=== PATIENT | male | born 1950 | race Caucasian/White ===

== ENCOUNTER 2017-08-06 15:38 | Inpatient (IN) | payer OTHER, MEDICARE ==
[~2017-08-06] VITALS: Ht 180.3 cm; Wt 98.0 kg
[2017-08-06] VITALS (9 sets, daily range): BP systolic 95–112; BP diastolic 52–64; PULSE 56–72; RESP 16–18; TEMP 98–100.2; O2SAT 95–98
[~2017-08-06 15:38] MED LIST: ASPI-183 PO; BACT2OIN TOPICAL; CARV6.252 PO; HYDR-3533 PO; LISI10TA3 PO; NITR1SUB2 SL; PRED-503 PO; SIMV20TA PO; VENTAER INH; Z.0.OXYGEN INH; ZOLO100T PO; [UNRECOGNIZED DRUG - CODE] TOPICAL
[2017-08-06] MEDS ORDERED: SODIUM CHLORIDE 0.9% FLUSH 10 ML FLUSH IVF PRN (16:00)
[2017-08-06] MEDS ORDERED: SODIUM CHLOR 0.9% 1000 ML INJ 1,000 ML IV ONE (16:00)
[2017-08-06] MEDS ORDERED: KETOROLAC TROMETHAMINE 30 MG/ML (IVP) VIAL IV PUSH ONE (16:00)
[2017-08-06] MEDS ORDERED: TAMS0.4C4 (16:03)
[2017-08-06] MEDS ORDERED: LISI-519 PO (16:03)
[2017-08-06] MEDS ORDERED: ASPI-516 CHEW (16:03)
--- NOTE | 2017-08-06 16:04 | PD ---
HPI Chief Complaint: Cold / Flu Symptoms Time Seen by Provider: 15:59 Travel History International Travel<30 days: No Contact w/Intl Traveler<30days: No Traveled to known affect area: No History of Present Illness HPI 66y male presents to the ED via [facility] complaining of cough, congestion, fevers, chills, body aches, and weakness for 2-3 days. 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 Says he "has lung pain". Denies nausea, vomiting, abdominal pain. Has a significant cardiac history which includes multiple stents and CABG. PFSH Past Medical History Asthma: Yes Blood Disorders: No Anxiety: No Depression: No Heart Rhythm Problems: No Cancer: No Cardiovascular Problems: Yes High Cholesterol: No Chemotherapy: No Chest Pain: Yes Congestive Heart Failure: No COPD: No Cerebrovascular Accident: Yes (2) Coronary Artery Disease: Yes Diminished Hearing: No Endocrine: No Glaucoma: No Genitourinary: No Hypertension: Yes Immune Disorder: No Musculoskeletal: No Neurologic: Yes Psychiatric: No Reproductive: No Respiratory: Yes Myocardial Infarction: Yes Radiation Therapy: No Sleep Apnea: No Past Surgical History Abdominal Surgery: No AICD: No Arteriovenous Shunt: No Cardiac Surgery: Yes (7 STENTS, CABG 2008, ) Coronary Artery Bypass Graft: Yes Coronary Stent: Yes Ear Surgery: No Endocrine Surgery: No Eye Surgery: No Genitourinary Surgery: No Gynecologic Surgery: No Insulin Pump: No Joint Replacement: No Oral Surgery: Yes (T/A A CHILD) Pacemaker: No Thoracic Surgery: No Tonsillectomy: Yes Other Surgery: Yes (STENTS 7 YRS AGO) Social History Alcohol Use: No Tobacco Use: No Substance Use: No Allergies-Medications (Allergen,Severity, Reaction): Coded Allergies: enoxaparin (Unverified Allergy, Severe, 08/06/17) heparin (porcine) (Unverified Allergy, Severe, 08/06/17) Reported Meds & Prescriptions Reported Meds & Active Scripts Active Reported Sertraline (Sertraline HCl) 100 Mg Tab 100 Mg PO DAILY Carvedilol 12.5 Mg Tab 12.5 Mg PO DAILY Tamsulosin (Tamsulosin HCl) 0.4 Mg Cap 0.4 Mg BID Lisinopril 5 Mg Tab 5 Mg PO DAILY Aspirin 81 Mg Chew 81 Mg CHEW DAILY Simvastatin 20 Mg Tab 20 Mg PO DAILY Nitroglycerin SL (Nitroglycerin) 0.3 Mg Subl 0.3 Mg SL DIRECTED PRN ONE TABLET UNDER THE TONGUE NEEDED FOR CHEST PAIN, MAY REPEAT EVERY FIVE MINUTES FOR A TOTAL OF 3 DOSES OR CALL 911 IF NO RELIEF Review of Systems Except as stated in HPI: all other systems reviewed are Neg Physical Exam Narrative GENERAL: Well-developed, well-nourished in no apparent distress SKIN: Focused skin assessment warm/dry. HEAD: Atraumatic. Normocephalic. EYES: Pupils equal and round. No scleral icterus. No injection or drainage. ENT: No nasal bleeding or discharge. Mucous membranes pink and moist. NECK: Trachea midline. No JVD. CARDIOVASCULAR: Regular rate and rhythm. No murmur appreciated. RESPIRATORY: No accessory muscle use. Clear to auscultation. Breath sounds equal bilaterally. GASTROINTESTINAL: Abdomen soft, non-tender, nondistended. MUSCULOSKELETAL: No obvious deformities. No clubbing. No cyanosis. No edema. NEUROLOGICAL: Awake and alert. No obvious cranial nerve deficits. Motor grossly within normal limits. Normal speech. PSYCHIATRIC: Appropriate mood and affect; insight and judgment normal. Data Data Last Documented VS Vital Signs Date Time Temp Pulse Resp B/P (MAP) Pulse Ox O2 Delivery O2 Flow Rate FiO2 08/06/17 20:00 58 16 100/53 (69) 96 Room Air 08/06/17 18:18 98.3 08/06/17 18:00 2.00 Orders Orders Electrocardiogram (08/06/17 15:56) Complete Blood Count With Diff (08/06/17 15:56) Comprehensive Metabolic Panel (08/06/17 15:56) Influenzae A/B Antigen (08/06/17 15:56) Chest, Pa & Lat (08/06/17 15:56) Oximetry (08/06/17 15:56) Sodium Chloride 0.9% Flush (Ns Flush) (08/06/17 16:00) Ckmb (Isoenzyme) Profile (08/06/17 15:56) Troponin I (08/06/17 15:56) Ketorolac Inj (Toradol Inj) (08/06/17 16:00) Sodium Chlor 0.9% 1000 Ml Inj (Ns 1000 M (08/06/17 16:00) Sepsis Workup Initiated (08/06/17 ) Lactic Acid Sepsis Protocol (08/06/17 16:34) Blood Culture (08/06/17 16:34) Blood Glucose (08/06/17 16:34) Ecg Monitoring (08/06/17 16:34) Iv Access Insert/Monitor (08/06/17 16:34) Oxygen Administration (08/06/17 16:34) Urinalysis - C+S If Indicated (08/06/17 17:55) Potassium Chloride (Kcl) (08/06/17 18:15) Sodium Chlorid 0.9% 500 Ml Inj (Ns 500 M (08/06/17 18:30) Urine Culture (08/06/17 18:00) Ceftriaxone Inj (Rocephin Inj) (08/06/17 19:00) Azithromycin Inj (Zithromax Inj) (08/06/17 19:00) Admit Order (Ed Use Only) (08/06/17 18:50) (Hub Use Only)Inp Phy Cons/Ref (08/06/17 ) Place In Observation (08/06/17 ) Vital Signs (Adult) Q4H (08/06/17 20:35) Activity Oob With Assistance (08/06/17 20:35) Supervisor Body Assembly / Telemetry .CONTINUOUS (08/06/17 20:35) Diet Heart Healthy (08/07/17 Breakfast) Sodium Chloride 0.9% Flush (Ns Flush) (08/06/17 20:45) Sodium Chloride 0.9% Flush (Ns Flush) (08/06/17 21:00) Basic Metabolic Panel (Bmp) (08/07/17 06:00) Complete Blood Count With Diff (08/07/17 06:00) Case Management Consult (08/06/17 20:35) Naloxone Inj (Narcan Inj) (08/06/17 20:45) Labs Laboratory Tests Test 08/06/17 16:30 08/06/17 16:55 08/06/17 18:00 White Blood Count 9.8 TH/MM3 Red Blood Count 4.44 MIL/MM3 Hemoglobin 13.1 GM/DL Hematocrit 38.8 % Mean Corpuscular Volume 87.4 FL Mean Corpuscular Hemoglobin 29.5 PG Mean Corpuscular Hemoglobin Concent 33.7 % Red Cell Distribution Width 14.1 % Platelet Count 94 TH/MM3 Mean Platelet Volume 10.2 FL Neutrophils (%) (Auto) 96.6 % Lymphocytes (%) (Auto) 1.4 % Monocytes (%) (Auto) 1.6 % Eosinophils (%) (Auto) 0.2 % Basophils (%) (Auto) 0.2 % Neutrophils # (Auto) 9.5 TH/MM3 Lymphocytes # (Auto) 0.1 TH/MM3 Monocytes # (Auto) 0.2 TH/MM3 Eosinophils # (Auto) 0.0 TH/MM3 Basophils # (Auto) 0.0 TH/MM3 CBC Comment AUTO DIFF Differential Comment AUTO DIFF CONFIRMED Platelet Estimate LOW Platelet Morphology Comment CLUMPED Blood Urea Nitrogen 23 MG/DL Creatinine 1.52 MG/DL Random Glucose 123 MG/DL Total Protein 6.6 GM/DL Albumin 3.1 GM/DL Calcium Level 8.4 MG/DL Alkaline Phosphatase 74 U/L Aspartate Amino Transf (AST/SGOT) 18 U/L Alanine Aminotransferase (ALT/SGPT) 18 U/L Total Bilirubin 0.8 MG/DL Sodium Level 141 MEQ/L Potassium Level 3.4 MEQ/L Chloride Level 110 MEQ/L Carbon Dioxide Level 21.1 MEQ/L Anion Gap 10 MEQ/L Estimat Glomerular Filtration Rate 46 ML/MIN Total Creatine Kinase 76 U/L Troponin I LESS THAN 0.02 NG/ML Lactic Acid Level 2.1 mmol/L Urine Color YELLOW Urine Turbidity HAZY Urine pH 5.5 Urine Specific [place] 1.019 Urine Protein TRACE mg/dL Urine Glucose (UA) NEG mg/dL Urine Ketones NEG mg/dL Urine Occult Blood MOD Urine Nitrite POS Urine Bilirubin NEG Urine Urobilinogen LESS THAN 2.0 MG/DL Urine Leukocyte Esterase LARGE Urine RBC 66 /hpf Urine WBC 35 /hpf Urine Bacteria MANY /hpf Urine Mucus FEW /lpf Microscopic Urinalysis Comment CULTURE INDICATED MDM Medical Decision Making Medical Screen Exam Complete: Yes Emergency Medical Condition: Yes Differential Diagnosis influenza, URI, PNA, viral syndrome, Narrative Course 66-year-old male presents emergency department via [facility] with any fever, chills, cough, body aches, and weakness for 2-3 days. Vital signs: BP 95/52, HR 75, [id number]% on RA, Temp 100.2 Labs and imaging studies ordered. EKG with RBBB. Please see Dr. Mcbride's note regarding the EKG. Last Impressions Chest X-Ray 08/06/17 1556 Signed Impressions: Service Date/Time: July 16:14 - CONCLUSION: Borderline heart size. No focal lung disease Albaro Sequeira MD CBC & BMP Diagram 08/06/17 16:30 Total Protein 6.6, Albumin 3.1 L, Calcium Level 8.4 L, Alkaline Phosphatase 74, Aspartate Amino Transf (AST/SGOT) 18, Alanine Aminotransferase (ALT/SGPT) 18, Total Bilirubin 0.8 Cardiac enzymes negative. Lactic acid 2.1 BUN/Cr elevated above apparent baseline at 23/1.52. Toradol for body aches. 1.5L NS IVF bolus administered, cautious rehydration as he does have significant heart disease. BP unresponsive to fluid challenge. Pt remains symptomatically weak. Influenza negative. Mild hypokalemia- 10mEq KCl administered. UA suggestive of a urinary tract infection. Because of the persistent hypotension, Lactic acid elevation, and fever, will admit for urosepsis. Rocephin and azithromycin administered for UTI and possible developing PNA Diagnosis Primary Impression: Hypokalemia Additional Impressions: UTI (urinary tract infection) Qualified Codes: N30.00 - Acute cystitis without hematuria Sepsis Qualified Codes: A41.9 - Sepsis, unspecified organism Admitting Information Admitting Physician Requests: Observation Condition: Stable Irma Rutherford Aug 06, 2017 16:04
--- NOTE | 2017-08-06 16:35 | RADRPT ---
EXAM DATE/TIME: 08/06/2017 16:14 [facility] COMPARISON: No previous studies available for comparison. INDICATIONS : Cough and short of breath MEDICAL HISTORY : Hypotension SURGICAL HISTORY : Pacemaker. ENCOUNTER: Initial ACUITY: 1 day PAIN SCORE: 9/10 LOCATION: Right chest FINDINGS: Pacemaker device is noted with control pack over the left chest. Lungs are focally clear. No effusion suspected. Cardiac contours are satisfactory for technique and projection with heart size at upper l imits of normal. Thoracic skeleton is grossly intact. CONCLUSION: Borderline heart size. No focal lung disease Albaro Sequeira MD on August 06, 2017 at 16:32 Board Certified Radiologist. This report was verified electronically.
[2017-08-06] MEDS ORDERED: CARV12.52 PO (16:46)
[2017-08-06] MEDS ORDERED: SERT-129 PO (16:46)
[2017-08-06 17:19] LABS: ALBUMIN 3.1 GM/DL (3.4-5.0); AST (GOT) 18 U/L (15-37); BICARBONATE 21.1 MEQ/L (21.0-32.0); BLOOD UREA NITROGEN 23 MG/DL (7-18); CALCIUM 8.4 MG/DL (8.5-10.1); CHLORIDE 110 MEQ/L (98-107); CREATININE 1.52 MG/DL (0.60-1.30); GLOMERULAR FILTRATION RATE 46 ML/MIN (>89); GLUCOSE,RANDOM 123 MG/DL (74-106); SODIUM (NA) 141 MEQ/L (136-145)
[2017-08-06 17:24] LABS: ALKALINE PHOSPHATASE 74 U/L (45-117); ALT (GPT) 18 U/L (12-78); TOTAL BILIRUBIN ADULT 0.8 MG/DL (0.2-1.0); TOTAL PROTEIN 6.6 GM/DL (6.4-8.2); TROPONIN I LESS THAN 0.02 NG/ML (0.02-0.05)
[2017-08-06 17:37] LABS: AUTOMATED NEUTROPHIL # 9.5 TH/MM3 (1.8-7.7); BASOPHIL % 0.2 % (0.0-2.0); EOSINOPHIL % 0.2 % (0.0-4.0); HEMATOCRIT 38.8 % (39.0-51.0); HEMOGLOBIN 13.1 GM/DL (13.0-17.0); LYMPH % 1.4 % (9.0-44.0); LYMPHOCYTE # 0.1 TH/MM3 (1.0-4.8); MEAN CELL VOLUME 87.4 FL (80.0-100.0); MEAN CORPUSCULAR HEMOGLOBIN 29.5 PG (27.0-34.0); MEAN CORPUSCULAR HGB CONC 33.7 % (32.0-36.0); MEAN PLATELET VOLUME 10.2 FL (7.0-11.0); MONO % 1.6 % (0.0-8.0); MONOCYTE # 0.2 TH/MM3 (0-0.9); NEUT % 96.6 % (16.0-70.0); PLATELET COUNT 94 TH/MM3 (150-450); RED BLOOD COUNT 4.44 MIL/MM3 (4.50-5.90); RED CELL DISTRIBUTION WIDTH 14.1 % (11.6-17.2); WHITE BLOOD COUNT 9.8 TH/MM3 (4.0-11.0)
[2017-08-06 17:52] LABS: LACTIC ACID SEPSIS PROTOCOL 2.1 mmol/L (0.4-2.0)
[2017-08-06] MEDS ORDERED: POTASSIUM CHLORIDE 10 MEQ CONTROLLED RELEASE TAB PO ONE (18:15)
--- NOTE | 2017-08-06 18:22 | PD ---
Physical Exam Narrative I, Dr. Mcbride, have reviewed the advance practice practitioner's documentation and am in agreement, met with the patient face to face, made the diagnosis, and the medical decision making was done by me. *My assessment and Findings: Patient is a 66 year old male who comes in complaining of feeling weak. Patient hypotensive on arrival. No other acute abnormalities on exam. Data Data Last Documented VS Vital Signs Date Time Temp Pulse Resp B/P (MAP) Pulse Ox O2 Delivery O2 Flow Rate FiO2 08/06/17 18:18 98.3 08/06/17 18:00 68 16 95 Nasal Cannula 2.00 Orders Orders Electrocardiogram (08/06/17 15:56) Complete Blood Count With Diff (08/06/17 15:56) Comprehensive Metabolic Panel (08/06/17 15:56) Influenzae A/B Antigen (08/06/17 15:56) Chest, Pa & Lat (08/06/17 15:56) Oximetry (08/06/17 15:56) Sodium Chloride 0.9% Flush (Ns Flush) (08/06/17 16:00) Ckmb (Isoenzyme) Profile (08/06/17 15:56) Troponin I (08/06/17 15:56) Ketorolac Inj (Toradol Inj) (08/06/17 16:00) Sodium Chlor 0.9% 1000 Ml Inj (Ns 1000 M (08/06/17 16:00) Sepsis Workup Initiated (08/06/17 ) Lactic Acid Sepsis Protocol (08/06/17 16:34) Blood Culture (08/06/17 16:34) Blood Glucose (08/06/17 16:34) Ecg Monitoring (08/06/17 16:34) Iv Access Insert/Monitor (08/06/17 16:34) Oxygen Administration (08/06/17 16:34) Urinalysis - C+S If Indicated (08/06/17 17:55) Potassium Chloride (Kcl) (08/06/17 18:15) Sodium Chlorid 0.9% 500 Ml Inj (Ns 500 M (08/06/17 18:30) Urine Culture (08/06/17 18:00) Labs Laboratory Tests Test 08/06/17 16:30 08/06/17 16:55 08/06/17 18:00 White Blood Count 9.8 TH/MM3 Red Blood Count 4.44 MIL/MM3 Hemoglobin 13.1 GM/DL Hematocrit 38.8 % Mean Corpuscular Volume 87.4 FL Mean Corpuscular Hemoglobin 29.5 PG Mean Corpuscular Hemoglobin Concent 33.7 % Red Cell Distribution Width 14.1 % Platelet Count 94 TH/MM3 Mean Platelet Volume 10.2 FL Neutrophils (%) (Auto) 96.6 % Lymphocytes (%) (Auto) 1.4 % Monocytes (%) (Auto) 1.6 % Eosinophils (%) (Auto) 0.2 % Basophils (%) (Auto) 0.2 % Neutrophils # (Auto) 9.5 TH/MM3 Lymphocytes # (Auto) 0.1 TH/MM3 Monocytes # (Auto) 0.2 TH/MM3 Eosinophils # (Auto) 0.0 TH/MM3 Basophils # (Auto) 0.0 TH/MM3 CBC Comment AUTO DIFF Differential Comment AUTO DIFF CONFIRMED Platelet Estimate LOW Platelet Morphology Comment CLUMPED Blood Urea Nitrogen 23 MG/DL Creatinine 1.52 MG/DL Random Glucose 123 MG/DL Total Protein 6.6 GM/DL Albumin 3.1 GM/DL Calcium Level 8.4 MG/DL Alkaline Phosphatase 74 U/L Aspartate Amino Transf (AST/SGOT) 18 U/L Alanine Aminotransferase (ALT/SGPT) 18 U/L Total Bilirubin 0.8 MG/DL Sodium Level 141 MEQ/L Potassium Level 3.4 MEQ/L Chloride Level 110 MEQ/L Carbon Dioxide Level 21.1 MEQ/L Anion Gap 10 MEQ/L Estimat Glomerular Filtration Rate 46 ML/MIN Total Creatine Kinase 76 U/L Troponin I LESS THAN 0.02 NG/ML Lactic Acid Level 2.1 mmol/L Urine Color YELLOW Urine Turbidity HAZY Urine pH 5.5 Urine Specific [place] 1.019 Urine Protein TRACE mg/dL Urine Glucose (UA) NEG mg/dL Urine Ketones NEG mg/dL Urine Occult Blood MOD Urine Nitrite POS Urine Bilirubin NEG Urine Urobilinogen LESS THAN 2.0 MG/DL Urine Leukocyte Esterase LARGE Urine RBC 66 /hpf Urine WBC 35 /hpf Urine Bacteria MANY /hpf Urine Mucus FEW /lpf Microscopic Urinalysis Comment CULTURE INDICATED MDM Supervised Visit with JACOB: Yes Narrative Course ECG concerning for left anterior fascicular block. Interpretation reading Acute AR. I did discuss it with Dr. Cordero and we agree this does not meet STEMI criteria. Patient is not having chest pain. Patient given IVF, but continued to be mildly hypotensive. Urinalysis positive for UTI. Troponin negative. He will be admitted for further management. Diagnosis Primary Impression: Hypokalemia Admitting Information Admitting Physician Requests: Admit Condition: Stable Jeri Mcbride MD Aug 06, 2017 18:22
[2017-08-06] MEDS ORDERED: SODIUM CHLORID 0.9% 500 ML INJ 500 ML IV ONE (18:30)
[2017-08-06 18:33] LABS: BACTERIA, URINE MANY /hpf; BILIRUBIN, URINE NEG (NEG); BLOOD, URINE MOD (NEG); GLUCOSE,URINE NEG (NEG); KETONE, URINE NEG (NEG); MUCUS URINE FEW /lpf (OCC); NITRITE,URINE POS (NEG); PH, URINE 5.5 (5.0-8.5); URINE COLOR YELLOW (YELLW/STRAW); URINE LEUKOCYTE ESTERASE LARGE (NEG)
[2017-08-06] MEDS ORDERED: cefTRIAXone INJ 1,000 MG in SODIUM CHLORIDE 0.9% INJ 100 ML IV ONE (19:00)
[2017-08-06] MEDS ORDERED: AZITHROMYCIN INJ 500 MG in SODIUM CHLOR 0.9% 250 ML INJ 250 ML IV ONE (19:00)
[2017-08-06] MEDS ORDERED: SODIUM CHLORIDE 0.9% FLUSH 10 ML FLUSH IV FLUSH PRN (20:45)
[2017-08-06] MEDS ORDERED: NALOXONE HCL 0.4 MG/ML AMP IV PUSH PRN (20:45)
[2017-08-06] MEDS: SODIUM CHLORIDE 0.9% FLUSH 10 ML FLUSH IV FLUSH SCH (21:00)
--- NOTE | 2017-08-06 21:44 | HHI.HP ---
HPI Service [facility] Primary Care Physician Unknown Admission Diagnosis Urosepsis, weakness Diagnoses: Travel History International Travel<30 Days: No Contact w/Intl Traveler <30 Da: No Traveled to Known Affected Are: No History of Present Illness watering in garden could no twalk weak, stummbling pain in joints breaks out in sweats and chills chestwas hurting everyhting was hurtning lied down, had second round family called 911 feeling run down for about 1 week coughing for about few days no vomiting stomach aches diarrhea- about 2 x aday for past few days- but has been lose for about 1 week not on antibiotics, no recent hospital, no daycare or NH work no urine symptoms stool was dark not on blood thinners past 1 week, no stamina, short of breath Review of Systems Except as stated in HPI: all other systems reviewed are Neg Past Family Social History Past Medical History htn cad- s/p cardiac stents x 7, cabg chf- EF 20% in 10/2010 s/p aicd and ppm - last checked about 4 months ago - next apt in august asthma copd PAD- with amputated foot due to embolic event during the time of CABG about 8 yrs ago (2008) CVA- embolic event at that time HIT (2008) Past Surgical History coronary angigrams stents cabg left foot partial amputation possible splenectomy vs splenic artery embolization from traumatic fall from sleep walking Allergies: Coded Allergies: enoxaparin (Unverified Allergy, Severe, 08/06/17) heparin (porcine) (Unverified Allergy, Severe, 08/06/17) Family History father- cad Social History used to smoke >20yrs, quit 8 yrs ago no etoh abuse no drugs abuse Physical Exam Vital Signs Vital Signs Date Time Temp Pulse Resp B/P (MAP) Pulse Ox O2 Delivery O2 Flow Rate FiO2 08/06/17 19:06 59 18 103/52 (69) 95 Room Air 08/06/17 18:18 98.3 08/06/17 18:00 68 16 96/54 (68) 95 Nasal Cannula 2.00 08/06/17 17:00 65 16 99/58 (72) 95 Nasal Cannula 2.00 08/06/17 16:30 97 Nasal Cannula 2.00 08/06/17 15:45 Room Air 08/06/17 15:44 100.2 72 18 95/52 (66) 95 Physical Exam GENERAL: This is a well-nourished, well-developed patient, in no apparent distress. SKIN: No rashes, ecchymoses or lesions. Cool and dry. HEAD: Atraumatic. Normocephalic. No temporal or scalp tenderness. EYES: Pupils equal round and reactive. Extraocular motions intact. No scleral icterus. No injection or drainage. ENT: Nose without bleeding, purulent drainage or septal hematoma. Throat without erythema, tonsillar hypertrophy or exudate. Uvula midline. Airway patent. NECK: Trachea midline. No JVD or lymphadenopathy. Supple, nontender, no meningeal signs. CARDIOVASCULAR: Regular rate and rhythm without murmurs, gallops, or rubs. RESPIRATORY: Clear to auscultation. Breath sounds equal bilaterally. No wheezes , rales, or rhonchi. GASTROINTESTINAL: Abdomen soft, non-tender, nondistended. No hepato-splenomegaly , or palpable masses. No guarding. MUSCULOSKELETAL: Extremities without clubbing, cyanosis, or edema. No joint tenderness, effusion, or edema noted. No calf tenderness. Negative Homans sign bilaterally. NEUROLOGICAL: Awake and alert. Cranial nerves II through XII intact. Motor and sensory grossly within normal limits. Five out of 5 muscle strength in all muscle groups. Normal speech. Laboratory Laboratory Tests Test 08/06/17 16:30 08/06/17 16:55 08/06/17 18:00 08/06/17 20:47 White Blood Count 9.8 Red Blood Count 4.44 Hemoglobin 13.1 Hematocrit 38.8 Mean Corpuscular Volume 87.4 Mean Corpuscular Hemoglobin 29.5 Mean Corpuscular Hemoglobin Concent 33.7 Red Cell Distribution Width 14.1 Platelet Count 94 Mean Platelet Volume 10.2 Neutrophils (%) (Auto) 96.6 Lymphocytes (%) (Auto) 1.4 Monocytes (%) (Auto) 1.6 Eosinophils (%) (Auto) 0.2 Basophils (%) (Auto) 0.2 Neutrophils # (Auto) 9.5 Lymphocytes # (Auto) 0.1 Monocytes # (Auto) 0.2 Eosinophils # (Auto) 0.0 Basophils # (Auto) 0.0 CBC Comment AUTO DIFF Differential Comment AUTO DIFF CONFIRMED Platelet Estimate LOW Platelet Morphology Comment CLUMPED Blood Urea Nitrogen 23 Creatinine 1.52 Random Glucose 123 Total Protein 6.6 Albumin 3.1 Calcium Level 8.4 Alkaline Phosphatase 74 Aspartate Amino Transf (AST/SGOT) 18 Alanine Aminotransferase (ALT/SGPT) 18 Total Bilirubin 0.8 Sodium Level 141 Potassium Level 3.4 Chloride Level 110 Carbon Dioxide Level 21.1 Anion Gap 10 Estimat Glomerular Filtration Rate 46 Total Creatine Kinase 76 Troponin I LESS THAN 0.02 Lactic Acid Level 2.1 1.5 Urine Color YELLOW Urine Turbidity HAZY Urine pH 5.5 Urine Specific [place] 1.019 Urine Protein TRACE Urine Glucose (UA) NEG Urine Ketones NEG Urine Occult Blood MOD Urine Nitrite POS Urine Bilirubin NEG Urine Urobilinogen LESS THAN 2.0 Urine Leukocyte Esterase LARGE Urine RBC 66 Urine WBC 35 Urine Bacteria MANY Urine Mucus FEW Microscopic Urinalysis Comment CULTURE INDICATED Date/Time Source Procedure Growth Status 08/06/17 16:45 Blood Peripheral Aerobic Blood Culture Pending Received 08/06/17 16:45 Blood Peripheral Anaerobic Blood Culture Pending Received 08/06/17 16:30 Nasal Aspirate Influenza Types A,B Antigen (JUAN CARLOS) - Final NEGATIVE FOR FLU A AND B ANTIGEN.... Complete 08/06/17 18:00 Urine Clean Catch Urine Culture Pending Received Result Diagram: 08/06/17 1630 08/06/17 1630 Caprini VTE Risk Assessment Caprini Risk Assessment Model Point Value = 1 Point Value = 2 Point Value = 3 Point Value = 5 Age 41-60 Minor surgery BMI > 25 kg/m2 Swollen legs Varicose veins or History of unexplained or recurrent spontaneous Oral contraceptives or hormone replacement Sepsis (< 1 month) Serious lung disease, including pneumonia (< 1 month) Abnormal pulmonary function Acute myocardial infarction Congestive heart failure (< 1 month) History of inflammatory bowel disease Medical patient at bed rest Age 61-74 Arthroscopic surgery Major open surgery (> 45 min) Laparoscopic surgery (> 45 min) Malignancy Confined to bed (> 72 hours) Immobilizing plaster cast Central venous access Age >= 75 History of VTE Family history of VTE Factor V Leiden Prothrombin [id number] Lupus anticoagulant Anticardiolipin antibodies Elevated serum homocysteine Heparin-induced thrombocytopenia Other congenital or acquired thrombophilia Stroke (< 1 month) Elective arthroplasty Hip, pelvis, or leg fracture Acute spinal cord injury (< 1 month) Prophylaxis Regimen Total Risk Factor Score Risk Level Prophylaxis Regimen 0-1 Low Early ambulation 2 Moderate Order ONE of the following: *Sequential Compression Device (SCD) *Heparin 5000 units SQ BID 3-4 Higher Order ONE of the following medications: *Heparin 5000 units SQ TID *Enoxaparin/Lovenox 40 mg SQ daily (WT < 150 kg, CrCl > 30 mL/min) *Enoxaparin/Lovenox 30 mg SQ daily (WT < 150 kg, CrCl > 10-29 mL/min) *Enoxaparin/Lovenox 30 mg SQ BID (WT < 150 kg, CrCl > 30 mL/min) AND/OR *Sequential Compression Device (SCD) 5 or more Highest Order ONE of the following medications: *Heparin 5000 units SQ TID (Preferred with Epidurals) *Enoxaparin/Lovenox 40 mg SQ daily (WT < 150 kg, CrCl > 30 mL/min) *Enoxaparin/Lovenox 30 mg SQ daily (WT < 150 kg, CrCl > 10-29 mL/min) *Enoxaparin/Lovenox 30 mg SQ BID (WT < 150 kg, CrCl > 30 mL/min) AND *Sequential Compression Device (SCD) Assessment and Plan Assessment and Plan Impression: UTI /pyelonephritis suspect underlying bacteremia suspect gram negative sepsis 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 status post cardiac stents 7. Status post CABG. CHF EF of 20% by echo in October 2010. Status post AICD and pacemaker placement. Last checked was about 4 months ago. 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 We'll continue Rocephin IV. Start patient on Zosyn IV renal adjusted dose. We'll follow up urine culture results and blood culture results. Ultrasound of the kidneys. CT abdomen and pelvis. Hydrate patient orally. Patient is also receiving IV fluids in the form of antibiotics. Watch for fluid overload. Resume rest of his home medications. DVT prophylaxis with SCD. GI prophylaxis on pantoprazole. Summer Ma MD Aug 06, 2017 21:44
[2017-08-06] MEDS ORDERED: DIATRIZOATE MEGLUM/DIATRIZOATE SOD 9 ML CUP PO ONE (22:15)
[2017-08-06] MEDS ORDERED: ACETAMINOPHEN/HYDROcodone 325 MG/5 MG TAB PO PRN (22:15)
--- NOTE | 2017-08-06 23:12 | RADRPT ---
EXAM DATE/TIME: 08/06/2017 22:47 [facility] COMPARISON: No previous studies available for comparison. INDICATIONS : Kidney failure. Pyelonephritis. MEDICAL HISTORY : Hypercholesterolemia. Hypertension. CVA. SURGICAL HISTORY : Tonsillectomy. Coronary stent. CABG. ENCOUNTER: Initial ACUITY: 1 day PAIN SCORE: 0/10 LOCATION: Bilateral flank MEASUREMENTS: RIGHT KIDNEY: 11.5 x 6.9 x 7.3 cm LEFT KIDNEY: 7.6 x 3.3 x 2.7 cm FINDINGS: RIGHT KIDNEY: The right kidney is normal in size and shape with mild cortical thinning. There is no hydronephrosis, stone or mass. LEFT KIDNEY: The left kidney is small and atrophic with cortical thinning. There is no hydronephrosis, stone or so lid mass. There are 3 small cystic structures measuring 9 x 7 x 12 mm in the upper pole, 15 x 12 x 11 mm in the central kidney and 14 x 12 x 14 mm in the lower pole. BLADDER: Within normal limits given the degree of distension. CONCLUSION: 1. Left kidney is small and atrophic in appearance with multiple small cystic structures. 2. The right kidney demonstrates mild cortical thinning. Gab Martin MD on August 06, 2017 at 23:07 Board Certified Radiologist. This report was verified electronically.
[2017-08-07] VITALS (8 sets, daily range): BP systolic 90–131; BP diastolic 51–64; PULSE 44–61; RESP 16–18; TEMP 97.9–101.9; O2SAT 95–98
[2017-08-07] MEDS: ACETAMINOPHEN 500 MG CPLT PO PRN ×2 (00:49→16:52)
[2017-08-07] MEDS: PIPERACIL-TAZO 4.5 GM PREMIX 100 ML IV SCH ×2 (00:49→06:52)
[2017-08-07] MEDS: TEMAZEPAM 15 MG CAP PO PRN ×2 (02:54→22:15)
--- NOTE | 2017-08-07 02:57 | RADRPT ---
EXAM DATE/TIME: 08/07/2017 02:22 [place] COMPARISON: US KIDNEY/RENAL/BLADDER, August 06, 2017, 22:47. INDICATIONS : Diffuse abdominal pain, flank pain. ORAL CONTRAST: Partial prescribed oral contrast ingested. RADIATION DOSE: 9.76 CTDIvol (mGy) MEDICAL HISTORY : Hypertension. Myocardial infarction. SURGICAL HISTORY : CABG Coronary artery stent. ENCOUNTER: Initial ACUITY: 1 day PAIN SCALE: 6/10 LOCATION: Abdomen. TECHNIQUE: Volumetric scanning of the abdomen and pelvis was performed. Using automated exposure control and ad justment of the mA and/or kV according to patient size, radiation dose was kept as low as reasonably achievable to obtain optimal diagnostic quality images. DICOM format image data is available electro nically for review and comparison. FINDINGS: LOWER LUNGS: The visualized lower lungs are clear. A transvenous pacer is present. LIVER: Homogeneous density without lesion. There is no dilation of the biliary tree. There are multiple sma ll calcified gallstones. SPLEEN: Normal size without lesion. Gadolinium margins are lobular. There is no focal lesion. PANCREAS: Within normal limits. KIDNEYS: The right kidney is normal in size and appearance. Left kidney is small and atrophic in appearance wi th lobular contours. There are no renal calculi or hydronephrosis. ADRENAL GLANDS: Within normal limits. VASCULAR: There is no aortic aneurysm. BOWEL/MESENTERY: There are several loops of nondilated air-containing small bowel several small air-fluid levels. Cont rast is noted segmentally in the colon. There is no free intraperitoneal air or fluid. ABDOMINAL WALL: Within normal limits. RETROPERITONEUM: There is no lymphadenopathy. BLADDER: No wall thickening or mass. REPRODUCTIVE: Within normal limits. INGUINAL: There is no lymphadenopathy or hernia. MUSCULOSKELETAL: Within normal limits for patient age. CONCLUSION: 1. Left kidney is small and atrophic in appearance with no renal calculi or structure. 2. Multiple small gallstones are noted with no wall thickening or inflammatory change. 3. Spleen is normal in size with lobular contour no focal lesion. This may be related to remote traum a. 4. Mildly nonspecific bowel gas pattern which may represent a mild ileus. Gab Martin MD on August 07, 2017 at 2:51 Board Certified Radiologist. This report was verified electronically.
[2017-08-07 07:36] LABS: AUTOMATED NEUTROPHIL # 8.4 TH/MM3 (1.8-7.7); BASOPHIL % 0.3 % (0.0-2.0); EOSINOPHIL % 0.3 % (0.0-4.0); HEMATOCRIT 36.5 % (39.0-51.0); HEMOGLOBIN 12.3 GM/DL (13.0-17.0); LYMPHOCYTE # 0.6 TH/MM3 (1.0-4.8); MEAN CELL VOLUME 86.5 FL (80.0-100.0); MEAN CORPUSCULAR HGB CONC 33.6 % (32.0-36.0); MEAN PLATELET VOLUME 9.9 FL (7.0-11.0); MONO % 4.7 % (0.0-8.0); MONOCYTE # 0.4 TH/MM3 (0-0.9); NEUT % 88.7 % (16.0-70.0); PLATELET COUNT 95 TH/MM3 (150-450); RED BLOOD COUNT 4.22 MIL/MM3 (4.50-5.90); RED CELL DISTRIBUTION WIDTH 14.5 % (11.6-17.2); WHITE BLOOD COUNT 9.4 TH/MM3 (4.0-11.0)
[2017-08-07 07:49] LABS: BICARBONATE 22.9 MEQ/L (21.0-32.0); CALCIUM 8.3 MG/DL (8.5-10.1); CREATININE 1.4 MG/DL (0.60-1.30)
[2017-08-07] MEDS: LISINOPRIL 5 MG TAB PO SCH (08:43)
[2017-08-07] MEDS: PANTOPRAZOLE SOD 40 MG DELAYED RELEASE TAB PO SCH (08:45)
[2017-08-07] MEDS: TAMSULOSIN HCL 0.4 MG CAP PO SCH ×2 (08:45→22:15)
[2017-08-07] MEDS: SERTRALINE HCL 100 MG TAB PO SCH (08:45)
[2017-08-07] MEDS: ASPIRIN 81 MG CHEW TAB CHEW SCH (08:45)
[2017-08-07] MEDS: SODIUM CHLORIDE 0.9% FLUSH 10 ML FLUSH IV FLUSH SCH ×2 (08:45→22:16)
[2017-08-07] MEDS: LACTOBACILLUS ACIDOPHILUS TAB PO SCH ×3 (08:45→16:49)
[2017-08-07] MEDS ORDERED: cefTRIAXone INJ 1,000 MG in SODIUM CHLORIDE 0.9% INJ 100 ML IV SCH (09:00)
[2017-08-07] MEDS ORDERED: CARVEDILOL 12.5 MG TAB PO SCH (09:00)
[2017-08-07 09:18] LABS: BANDS 13 % (0-6); LYMPHOCYTES 14 % (9-44); MONOCYTES 7 % (0-8); NEUTROPHIL # MANUAL DIFF 7.4 TH/MM3 (1.8-7.7); POLYS (SEG NEUTROPHILS) 66 % (16-70)
--- NOTE | 2017-08-07 15:24 | HHI.PR ---
Subjective Remarks Follow-up for pyelonephritis. Patient is currently doing better. He denies any chest pain, shortness of breath. He had fever to 101.9F after midnight today. Objective Vitals Vital Signs Date Time Temp Pulse Resp B/P (MAP) Pulse Ox O2 Delivery O2 Flow Rate FiO2 08/07/17 12:00 98.3 44 18 100/54 (69) 97 08/07/17 10:55 45 08/07/17 08:00 98.0 49 18 90/54 (66) 98 08/07/17 05:00 98.0 50 18 94/51 (65) 98 08/07/17 00:41 101.9 61 18 115/56 (75) 95 08/06/17 22:49 98.0 56 18 112/64 (80) 98 08/06/17 21:56 59 16 100/60 (73) 94 08/06/17 21:00 64 18 101/52 (68) 97 Room Air 08/06/17 20:00 58 16 100/53 (69) 96 Room Air 08/06/17 19:06 59 18 103/52 (69) 95 Room Air 08/06/17 18:18 98.3 08/06/17 18:00 68 16 96/54 (68) 95 Nasal Cannula 2.00 08/06/17 17:00 65 16 99/58 (72) 95 Nasal Cannula 2.00 08/06/17 16:30 97 Nasal Cannula 2.00 08/06/17 15:45 Room Air 08/06/17 15:44 100.2 72 18 95/52 (66) 95 I/O 08/06/17 08/06/17 08/06/17 08/07/17 08/07/17 08/07/17 06:59 14:59 22:59 06:59 14:59 22:59 Intake Total 1850 ml 240 ml 100 ml Balance 1850 ml 240 ml 100 ml Intake Oral 240 ml IV Total 1850 ml 100 ml # Voids 1 1 Result Diagram: 08/07/17 0607 08/07/17 0607 Imaging Last Impressions Chest X-Ray 08/06/17 1556 Signed Impressions: Service Date/Time: July 16:14 - CONCLUSION: Borderline heart size. No focal lung disease Albaro Sequeira MD Renal Ultrasound 08/06/17 0000 Signed Impressions: Service Date/Time: July 22:47 - CONCLUSION: 1. Left kidney is small and atrophic in appearance with multiple small cystic structures. 2. The right kidney demonstrates mild cortical thinning. Gab Martin MD Abdomen/Pelvis CT 08/06/17 0000 Signed Impressions: Service Date/Time: Monday, August 07, 2017 02:22 - CONCLUSION: 1. Left kidney is small and atrophic in appearance with no renal calculi or structure. 2. Multiple small gallstones are noted with no wall thickening or inflammatory change. 3. Spleen is normal in size with lobular contour no focal lesion. This may be related to remote trauma. 4. Mildly nonspecific bowel gas pattern which may represent a mild ileus. Gab Martin MD Objective Remarks GENERAL: Alert, oriented 3, NAD. SKIN: Warm and dry. HEAD: Normocephalic. EYES: No scleral icterus. No injection or drainage. NECK: Supple, trachea midline. No JVD or lymphadenopathy. CARDIOVASCULAR: Regular rate and rhythm without murmurs, gallops, or rubs. RESPIRATORY: Breath sounds equal bilaterally. No accessory muscle use. GASTROINTESTINAL: Abdomen soft, non-tender, nondistended. No CVA tenderness. MUSCULOSKELETAL: No cyanosis, or edema. BACK: Nontender without obvious deformity. Procedures None A/P Problem List: (1) Acute pyelonephritis ICD Code: N10 - Acute pyelonephritis (2) Hypertension ICD Code: I10 - Essential (primary) hypertension Assessment and Plan Mr. Campo, 66 was admitted due to generalized malaise and suspected UTI. Clinically, his symptoms were persistent with acute pyelonephritis. - Acute Pyelonephritis - Urine cx growing E. Coli. - D/C Zosyn, keep patient on Ceftriaxone 1g Q24hrs. - Will wait for sensitivity. Possible discharge home tomorrow. - Hypertension -CAD status post stents and CABG. - continue aspirin, lisinopril 5mg, reduce carvedilol from 12.5-6.25 mg twice daily. -BPH -tamsulosin. Full code. SCDs. Brian Chairez DO Aug 07, 2017 3:24 pm
--- NOTE | 2017-08-07 19:40 | EKG ---
Date Performed: 08/06/2017 Time Performed: 16:38:43 PTAGE: 66 years EKG: Sinus rhythm WITH A PVC POSSIBLE LEFT ATRIAL ENLARGEMENT RIGHT BUNDLE BRANCH BLOCK LEFT ANTERIOR FASCICULAR BLOCK CONSIDER INFERIOR MYOCARDIAL INFARCTION ACUTE AL PREVIOUS TRACING : 11/07/2010 05.14 DOCTOR: Artur Lopez Interpretating Date/Time 08/07/2017 19:39:00
[2017-08-08] VITALS: BP 141/67; PULSE 51; RESP 18; TEMP 97.2; O2SAT 98
[2017-08-08 04:00] VITALS: BP 138/71; PULSE 50; RESP 19; TEMP 97.6; O2SAT 96
[2017-08-08] MEDS: LISINOPRIL 5 MG TAB PO SCH (07:39)
[2017-08-08] MEDS: ASPIRIN 81 MG CHEW TAB CHEW SCH (07:39)
[2017-08-08] MEDS: PANTOPRAZOLE SOD 40 MG DELAYED RELEASE TAB PO SCH (07:39)
[2017-08-08] MEDS: SERTRALINE HCL 100 MG TAB PO SCH (07:39)
[2017-08-08] MEDS: LACTOBACILLUS ACIDOPHILUS TAB PO SCH ×2 (07:39→11:59)
[2017-08-08] MEDS: TAMSULOSIN HCL 0.4 MG CAP PO SCH (07:39)
[2017-08-08] MEDS: SODIUM CHLORIDE 0.9% FLUSH 10 ML FLUSH IV FLUSH SCH (07:40)
[2017-08-08 08:46] VITALS: PULSE 47
[2017-08-08] MEDS ORDERED: CARVEDILOL 6.25 MG TAB PO SCH (09:00)
[2017-08-08] MEDS ORDERED: cefTRIAXone INJ 1,000 MG in SODIUM CHLORIDE 0.9% INJ 100 ML IV SCH (09:00)
[2017-08-08 09:01] VITALS: BP 155/74; PULSE 50; RESP 20; TEMP 98.3; O2SAT 96
[2017-08-08] MEDS ORDERED: PNEUMOCOCCAL POLYVALENT INJ 25 MCG/0.5 ML SYR IM ONE (10:00)
[2017-08-08] MEDS ORDERED: AUGM875T3 PO (11:42)
[2017-08-08] MEDS ORDERED: LACT PO (11:42)
[2017-08-08] MEDS ORDERED: CARV6.25 PO (11:42)
[2017-08-08 11:50] VITALS: BP 149/71; PULSE 51; RESP 20; TEMP 98; O2SAT 97
== END 2017-08-08 12:43 | disposition home or self-care (01) | DRG 690 ==
LOC: NEPC 15:38 → NEDA 18:55 → UNDOADMIN 18:55 → NEDA 20:37 → INTOOBSV 20:37 → OBSVTOIN 22:20 → N05A 22:28
PROVIDERS: ADMIT Hospitalist; ATTEND Hospitalist
DX: N10 Acute pyelonephritis (principal); N17.9 Acute kidney failure, unspecified; E87.2 Acidosis; I95.9 Hypotension, unspecified; I11.0 Hypertensive heart disease with heart failure; I50.9 Heart failure, unspecified; J44.9 Chronic obstructive pulmonary disease, unspecified; I45.2 Bifascicular block; I25.10 Atherosclerotic heart disease of native coronary artery without angina pectoris; I10 Essential (primary) hypertension; I25.2 Old myocardial infarction; E87.6 Hypokalemia; R19.7 Diarrhea, unspecified; I73.9 Peripheral vascular disease, unspecified; N40.0 Benign prostatic hyperplasia without lower urinary tract symptoms; B96.20 Unspecified Escherichia coli [E. coli] as the cause of diseases classified elsewhere; Z82.49 Family history of ischemic heart disease and other diseases of the circulatory system; Z86.73 Personal history of transient ischemic attack (TIA), and cerebral infarction without residual deficits; Z87.891 Personal history of nicotine dependence; Z89.432 Acquired absence of left foot; Z95.1 Presence of aortocoronary bypass graft; Z95.5 Presence of coronary angioplasty implant and graft; Z95.810 Presence of automatic (implantable) cardiac defibrillator; Z23 Encounter for immunization
CPT/HCPCS: 71046; 74176; 76775; 80048; 80053; 81001; 82550; 83605; 84484; 85007; 85025; 85027; 87040; 87077; 87086; 87186; 87804; 90732; 93005; J0456; J0696; J1885; J2543; J7030; J7040; J7050; Q9963

== ENCOUNTER 2018-01-19 13:29 | Observation (INO) ==
[2018-01-19] MEDS ORDERED: Sod Chloride 0.9% Inj 1,000 ML IV.SIG ONE (13:54)
--- NOTE | 2018-01-19 14:01 | ED ---
HPI General Chief complaint: Chest Pain Stated complaint: EKG needed Time Seen by Provider: 01/19/18 13:45 Source: patient Mode of arrival: ambulatory Limitations: no limitations History of Present Illness HPI narrative: The patient is a 67-year-old male that presented from primary's office for evaluation due to low heart rate and hypertension. The patient was having a follow-up visit today to the fact that he had diverticulitis and a UTI recently and when he went to his primary he had a near syncopal episode when standing and was found to be hypotensive with slow heart rate lightheadedness and shortness of breath. Patient also reports exertional dyspnea. Patient denies any chest pain Pain Consistency: intermittent Relieving factors: rest Exacerbating factors: other (Standing) Associated symptoms: denies other symptoms Related Data Home Medications Medication Instructions Recorded Confirmed Unable to Obtain Home Meds 01/19/18 01/19/18 Allergies Allergy/AdvReac Type Severity Reaction Status Date / Time enoxaparin Allergy Severe Unverified 08/06/17 16:00 heparin (porcine) Allergy Severe Unverified 08/06/17 16:00 Review of Systems Constitutional Reports fatigue and Reports malaise [facility] Medical History Medical History CAD (coronary artery disease) (Acute) Hypotension (Acute) Surgical History Surgical History AICD (automatic cardioverter/defibrillator) present (Acute) Hx of CABG (Acute) Family History Family History Father CAD (coronary artery disease) Social History Social History 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 ) Smoking Status: Former smoker (quit 7 years ago) How Often Do You Have a Drink Containing Alcohol: Monthly or less Recent Travel in [facility] within the Last 8 Weeks: No Recent Out of Country Travel within the Last 8 Weeks: No Immunization History Tetanus Immunization: Unsure Exam Narrative Exam Narrative: GENERAL: Alert and oriented in no distress SKIN: Focused skin assessment warm/dry. Sternotomy scar on anterior chest HEAD: Atraumatic. Normocephalic. EYES: Pupils equal and round. No scleral icterus. No injection or drainage. ENT: No nasal bleeding or discharge. Mucous membranes pink and moist.` NECK: Trachea midline. No JVD. CARDIOVASCULAR: Regular rate and rhythm. No murmur appreciated. RESPIRATORY: No accessory muscle use. Clear to auscultation. Breath sounds equal bilaterally. GASTROINTESTINAL: Abdomen soft, non-tender, nondistended. Hepatic and splenic margins not palpable. MUSCULOSKELETAL: No obvious deformities. No clubbing. No cyanosis. No edema. NEUROLOGICAL: Awake and alert. No obvious cranial nerve deficits. Motor grossly within normal limits. Normal speech. PSYCHIATRIC: Appropriate mood and affect; insight and judgment normal. Course Hospital Course: Patient had initial cardiac workup that was unremarkable. His creatinine was elevated 1.72 for which he was given fluids. UA was obtained also and was positive for urinary tract infection so we will send cultures and start him on Rocephin. Not appearing septic. Hypotension improved with hydration. He appear to be dehydrated which also improved with fluids. She did have a WBC elevation. Reevaluation(s) Reevaluation #1: Patient has been hydrated vitals have stabilized no shortness of breath at this time. Time: 16:00 Initial Documented Vital Signs Pulse Rate 73 01/19/18 13:34 Respiratory Rate 17 01/19/18 13:34 Blood Pressure 84/54 L 01/19/18 13:34 Pulse Oximetry 97 01/19/18 13:34 Last Documented Vital Signs Temperature 97.4 F L 01/19/18 18:44 Pulse Rate 57 L 01/19/18 18:44 Respiratory Rate 14 01/19/18 18:44 Blood Pressure 139/75 01/19/18 18:44 Pulse Oximetry 96 01/19/18 18:44 Medical Decision Making [facility] Narrative Medical decision making narrative: Patient with exertional dyspnea initial hypotension that improved after he was hydrated urinary tract infection. Does not appear septic. No lactic acidosis. He does have a marginal leukocytosis. His kidney function has worsened and his creatinine is now 1.72 from 1.4 on 08/07 Medical Screen Exam Complete: Yes Emergency Medical Condition: Yes Medical Records Medical records reviewed: Yes I reviewed the patient's medical records. Lab Data Lab results reviewed: Yes I reviewed the patient's lab results. Result diagrams: 01/19/18 14:01 01/19/18 14:01 Lab Results 01/19/18 01/19/18 01/19/18 Range/Units 14:01 14:01 14:01 WBC 6.7 (4.0-11.0) th/mm3 RBC 5.19 (4.50-5.90) mil/mm3 Hgb 15.4 (13.0-17.0) gm/dL Hct 46.5 (39.0-51.0) % MCV 89.7 (80.0-100.0) fL MCH 29.6 (27.0-34.0) pg MCHC 33.1 (32.0-36.0) % RDW 15.1 (11.6-17.2) % Plt Count 188 (150-450) th/mm3 MPV 9.3 (7.0-11.0) fL Neut % (Auto) 64.6 (16.0-70.0) % Lymph % (Auto) 21.6 (9.0-44.0) % [place] % (Auto) 10.3 H (0.0-8.0) % Eos % (Auto) 2.7 (0.0-4.0) % Baso % (Auto) 0.8 (0.0-2.0) % Neut # (Auto) 4.3 (1.8-7.7) th/mm3 Lymph # (Auto) 1.4 (1.0-4.8) th/mm3 [place] # (Auto) 0.7 (0.0-0.9) th/mm3 Eos # (Auto) 0.2 (0.0-0.4) th/mm3 Baso # (Auto) 0.1 (0.0-0.2) th/mm3 WBC Differential . Differential Comment Auto diff final PT 10.7 (9.8-11.6) sec INR 1.1 Ratio APTT 25.9 (24.3-30.1) sec Sodium 141 (136-145) meq/L Potassium 4.3 (3.5-5.1) meq/L Chloride 106 (98-107) meq/L Carbon Dioxide 24.8 (21.0-32.0) meq/L Anion Gap 10 (5-15) meq/L BUN 25 H (7-18) mg/dL Creatinine 1.72 H (0.60-1.30) mg/dL Estimated GFR 40 L (>89) mL/min Random Glucose 110 H (74-106) mg/dL Lactic Acid (0.4-2.0) mmol/L Calcium 9.0 (8.5-10.1) mg/dL Troponin I (0.02-0.05) ng/mL B-Natriuretic Peptide (0-100) pg/mL Urine Color (Yellw/Straw) Urine Clarity (Clear) Urine pH (5.0-8.5) Ur Specific [place] (1.002-1.035) Urine Protein (Neg-Trace) mg/dL Urine Glucose (UA) (Negative) mg/dL Urine Ketones (Negative) mg/dL Urine Occult Blood (Negative) Urine Nitrate (Negative) Urine Bilirubin (Negative) Urine Urobilinogen (Less than 2) mg/dL Ur Leukocyte Esterase (Negative) Urine RBC (0-3) /hpf Urine WBC (0-5) /hpf Ur Squamous Epith Cells (0-5) /hpf Calcium Oxalate Crystal (None) /hpf Urine Bacteria (None) /hpf Hyaline Casts (0-3) /lpf Urine Mucus (Occasional) /lpf Micro UA Comment Ur Microscopic Review Urine Culture Comments 01/19/18 01/19/18 01/19/18 Range/Units 14:01 14:01 14:01 WBC (4.0-11.0) th/mm3 RBC (4.50-5.90) mil/mm3 Hgb (13.0-17.0) gm/dL Hct (39.0-51.0) % MCV (80.0-100.0) fL MCH (27.0-34.0) pg MCHC (32.0-36.0) % RDW (11.6-17.2) % Plt Count (150-450) th/mm3 MPV (7.0-11.0) fL Neut % (Auto) (16.0-70.0) % Lymph % (Auto) (9.0-44.0) % [place] % (Auto) (0.0-8.0) % Eos % (Auto) (0.0-4.0) % Baso % (Auto) (0.0-2.0) % Neut # (Auto) (1.8-7.7) th/mm3 Lymph # (Auto) (1.0-4.8) th/mm3 [place] # (Auto) (0.0-0.9) th/mm3 Eos # (Auto) (0.0-0.4) th/mm3 Baso # (Auto) (0.0-0.2) th/mm3 WBC Differential Differential Comment PT (9.8-11.6) sec INR Ratio APTT (24.3-30.1) sec Sodium (136-145) meq/L Potassium (3.5-5.1) meq/L Chloride (98-107) meq/L Carbon Dioxide (21.0-32.0) meq/L Anion Gap (5-15) meq/L BUN (7-18) mg/dL Creatinine (0.60-1.30) mg/dL Estimated GFR (>89) mL/min Random Glucose (74-106) mg/dL Lactic Acid 1.7 (0.4-2.0) mmol/L Calcium (8.5-10.1) mg/dL Troponin I Less than 0.02 L (0.02-0.05) ng/mL B-Natriuretic Peptide 229 H (0-100) pg/mL Urine Color (Yellw/Straw) Urine Clarity (Clear) Urine pH (5.0-8.5) Ur Specific [place] (1.002-1.035) Urine Protein (Neg-Trace) mg/dL Urine Glucose (UA) (Negative) mg/dL Urine Ketones (Negative) mg/dL Urine Occult Blood (Negative) Urine Nitrate (Negative) Urine Bilirubin (Negative) Urine Urobilinogen (Less than 2) mg/dL Ur Leukocyte Esterase (Negative) Urine RBC (0-3) /hpf Urine WBC (0-5) /hpf Ur Squamous Epith Cells (0-5) /hpf Calcium Oxalate Crystal (None) /hpf Urine Bacteria (None) /hpf Hyaline Casts (0-3) /lpf Urine Mucus (Occasional) /lpf Micro UA Comment Ur Microscopic Review Urine Culture Comments 01/19/18 Range/Units 14:47 WBC (4.0-11.0) th/mm3 RBC (4.50-5.90) mil/mm3 Hgb (13.0-17.0) gm/dL Hct (39.0-51.0) % MCV (80.0-100.0) fL MCH (27.0-34.0) pg MCHC (32.0-36.0) % RDW (11.6-17.2) % Plt Count (150-450) th/mm3 MPV (7.0-11.0) fL Neut % (Auto) (16.0-70.0) % Lymph % (Auto) (9.0-44.0) % [place] % (Auto) (0.0-8.0) % Eos % (Auto) (0.0-4.0) % Baso % (Auto) (0.0-2.0) % Neut # (Auto) (1.8-7.7) th/mm3 Lymph # (Auto) (1.0-4.8) th/mm3 [place] # (Auto) (0.0-0.9) th/mm3 Eos # (Auto) (0.0-0.4) th/mm3 Baso # (Auto) (0.0-0.2) th/mm3 WBC Differential Differential Comment PT (9.8-11.6) sec INR Ratio APTT (24.3-30.1) sec Sodium (136-145) meq/L Potassium (3.5-5.1) meq/L Chloride (98-107) meq/L Carbon Dioxide (21.0-32.0) meq/L Anion Gap (5-15) meq/L BUN (7-18) mg/dL Creatinine (0.60-1.30) mg/dL Estimated GFR (>89) mL/min Random Glucose (74-106) mg/dL Lactic Acid (0.4-2.0) mmol/L Calcium (8.5-10.1) mg/dL Troponin I (0.02-0.05) ng/mL B-Natriuretic Peptide (0-100) pg/mL Urine Color [place] (Yellw/Straw) Urine Clarity Cloudy H (Clear) Urine pH 5.0 (5.0-8.5) Ur Specific [place] 1.021 (1.002-1.035) Urine Protein 100 H (Neg-Trace) mg/dL Urine Glucose (UA) Negative (Negative) mg/dL Urine Ketones Trace H (Negative) mg/dL Urine Occult Blood Negative (Negative) Urine Nitrate Negative (Negative) Urine Bilirubin Negative (Negative) Urine Urobilinogen 2.0 H (Less than 2) mg/dL Ur Leukocyte Esterase Trace H (Negative) Urine RBC 9 H (0-3) /hpf Urine WBC 10 H (0-5) /hpf Ur Squamous Epith Cells 1 (0-5) /hpf Calcium Oxalate Crystal Occasional H (None) /hpf Urine Bacteria Moderate H (None) /hpf Hyaline Casts 47 (0-3) /lpf Urine Mucus Few H (Occasional) /lpf Micro UA Comment Culture indicated Ur Microscopic Review Not Reportable Urine Culture Comments Culture indicated Imaging Data Radiologist's impression: Chest X-Ray 01/19/18 13:55 CONCLUSION: No acute intrathoracic disease. Stable examination. ECG Data Attestation: I personally reviewed and interpreted this ECG as follows: Interpretation: Sinus rhythm with heart rate of 82 bpm short DC interval with occasional PVCs. LVH. ST-T wave abnormalities. No signs of acute ischemia. Discharge Plan Discharge Disposition Patient Disposition: 30 Still Patient Discharge Condition Condition: Good Discharge Details Diagnosis: Near syncope, Dehydration, Acute kidney failure, Urinary tract infection, Hypotension Physicians Team ED Provider: Jn Powers Primary Care Provider: UNKNOWN, Attending Provider: Chandler Witt Discharge Interventions Interventions: ED Discharge Assessment Last Done: 01/19/18 18:48 Vital Signs Last Done: 01/19/18 13:52 Status ED Status: Left Department Discharge Information Discharge Date/Time: 01/19/18 18:48
[2018-01-19 14:28] LABS: Baso # (Auto) 0.1 th/mm3 (0.0-0.2); Baso % (Auto) 0.8 % (0.0-2.0); Eos # (Auto) 0.2 th/mm3 (0.0-0.4); Eos % (Auto) 2.7 % (0.0-4.0); Hematocrit 46.5 % (39.0-51.0); Hemoglobin 15.4 gm/dL (13.0-17.0); Lymph # (Auto) 1.4 th/mm3 (1.0-4.8); Lymph % (Auto) 21.6 % (9.0-44.0); Mean Corpuscular HGB Conc 33.1 % (32.0-36.0); Mean Corpuscular Hemoglobin 29.6 pg (27.0-34.0); Mean Corpuscular Volume 89.7 fL (80.0-100.0); Mean Platelet Volume 9.3 fL (7.0-11.0); Mono # (Auto) 0.7 th/mm3 (0.0-0.9); Mono % (Auto) 10.3 % (0.0-8.0); Neut # (Auto) 4.3 th/mm3 (1.8-7.7); Neut % (Auto) 64.6 % (16.0-70.0); Platelet Count 188 th/mm3 (150-450); Red Blood Count 5.19 mil/mm3 (4.50-5.90); Red Cell Distribution Width 15.1 % (11.6-17.2); White Blood Count 6.7 th/mm3 (4.0-11.0)
--- NOTE | 2018-01-19 14:28 | XR ---
EXAM DATE: 01/19/2018 2:26 PM EDT AGE/SEX: 67 years / Male INDICATIONS: Chest pains, shortness of breath, dizziness. CLINICAL DATA: This is the patient's initial encounter. Patient reports that signs and symptoms have been present for 1 week and indicates a pain score of 6/10. MEDICAL/SURGICAL HISTORY: Cardiovascular disease. CABG. Pacemaker. COMPARISON: [facility] [place], 08/06/[place]. . FINDINGS: A single AP view of the chest demonstrates the lungs to be symmetrically aerated without evidence of mass, infiltrate or effusion. The cardiomediastinal contours are stable. There is evidence of previo us cardiothoracic surgery. There is a pacemaker overlying the left chest.. Osseous structures are in tact. No significant changes compared to the prior study. CONCLUSION: No acute intrathoracic disease. Stable examination. Electronically signed by: Jayesh Zepeda MD 01/19/2018 2:27 PM EDT
[2018-01-19 14:37] LABS: Activated Partial Thrombo Time 25.9 sec (24.3-30.1); INR 1.1 Ratio; Prothrombin Time 10.7 sec (9.8-11.6)
[2018-01-19 14:46] LABS: Carbon Dioxide 24.8 meq/L (21.0-32.0); Potassium 4.3 meq/L (3.5-5.1)
[2018-01-19 15:33] LABS: Bacteria,Urine Moderate /hpf; Bilirubin,Urine Negative (Negative); Calcium Oxalate Crystals,Urine Occasional /hpf; Clarity,Urine Cloudy (Clear); Color,Urine Amber (Yellw/Straw); Glucose,Urine (UA) Negative (Negative); Hyaline Casts,Urine 47 /lpf (0-3); Leukocyte Esterase,Urine Trace (Negative); Mucus,Urine Few /lpf (Occasional); Nitrite,Urine Negative (Negative); Specific Gravity,Urine 1.021 (1.002-1.035); Squamous Epithelial Cell,Urine 1 /hpf (0-5)
--- NOTE | 2018-01-19 17:51 | P.HP ---
History of Present Illness Primary Care Physician: UNKNOWN Chief Complaint: lightheaded, chills, weakness History of Present Illness: This is a pleasant 67-year-old white male with significant past medical history of coronary artery disease and previous stents, CABG, cardiomyopathy with EF of 20% has AICD/pacemaker, COPD, PAD, CVA, hypertension. Patient presented to the emergency room with complaint of feeling lightheaded associated with chills and weakness for approximately a week. He went to see his primary care physician approximately 7-10 days ago and was diagnosed with possible diverticulitis and UTI. He completed antibiotics, he does not recall which antibiotics he was on. Patient states that he has continued to feel poorly, he has had occasional episodes of lightheadedness with chills. He initially had some abdominal discomfort which has now resolved. At the beginning of the week he started to have diarrhea which has improved, yesterday he had 4 loose bowel movements. He has not noted any blood. Denies any nausea, no vomiting. His appetite has improved over the last couple of days. States that he has lost approximately 14 pounds over the last 2 weeks. He denies any urinary symptoms, urine has been clear. His PCP wanted him to have a CT of the abdomen however he did not want to come to the hospital. Today he went to see his primary care physician and when he went to get up on the scale he felt like he was going to pass out, was short of breath. His blood pressure was noted 90s over 50s and his heart rate was noted fluctuating and his PCP was concerned that he may be having atrial fibrillation. Patient denies any history of A. fib. Patient presented to the emergency room, initial blood pressure was 84/54, heart rate was 73. EKG shows sinus rhythm. UA positive for mild leukocyte esterase and moderate bacteria. BMP remarkable for BUN of 25, creatinine 1.72. CBC unremarkable. Patient was given IV fluids and started on Rocephin. At this time, he is complaining of feeling hungry and wants to eat. Denies any dizziness. No chest pain, shortness of breath. Patient is admitted for further evaluation and treatment. - Diagnosis (1) Near syncope (2) Weakness (3) Dehydration (4) Acute kidney failure (5) Urinary tract infection (6) Hypotension (7) CAD (coronary artery disease) (8) History of stroke (9) Cardiomyopathy (10) History of automatic internal cardiac defibrillator (AICD) Review of Systems All other systems reviewed negative except as stated in HPI PMFSH - History History Provided By: Patient - Medical History Medical History: Medical History (Last Reviewed 01/19/18 @ 18:30 by LYUBOV Clark) CAD (coronary artery disease) CKD (chronic kidney disease) Cardiomyopathy HIT (heparin-induced thrombocytopenia) History of CVA (cerebrovascular accident) History of automatic internal cardiac defibrillator (AICD) Hx of cardiac pacemaker Hypotension PAD (peripheral artery disease) - Surgical History Surgical History: Surgical History (Last Reviewed 01/19/18 @ 18:30 by LYUBOV Clark) AICD (automatic cardioverter/defibrillator) present H/O heart artery stent History of partial amputation of toe of left foot Hx of CABG - Family History Family History: Family History (Last Updated 01/19/18 @ 18:31 by LYUBOV Clark) Father CAD (coronary artery disease) - Tobacco History Tobacco Use In Past 30 Days: No Smoking Status: Former smoker (quit 7 years ago) - Alcohol History How Often Do You Have a Drink Containing Alcohol: Monthly or less - Substance Use History 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 ) - Travel History Recent Travel in the [place] Within the Last 8 Weeks: No Recent Travel Out of the Country Within the Last 8 Weeks: No - Immunization History Tetanus Immunization: Unsure Medications and Allergies Allergies Allergy/AdvReac Type Severity Reaction Status Date / Time enoxaparin Allergy Severe Unverified 08/06/17 16:00 heparin (porcine) Allergy Severe Unverified 08/06/17 16:00 Exam Vital signs: Vital Signs 01/19/18 13:34 01/19/18 13:52 Pulse Rate 73 77 Respiratory Rate 17 18 Blood Pressure 84/54 L 98/63 L Pulse Oximetry 97 97 Intake & Output 01/18/18 01/19/18 01/19/18 18:59 06:59 18:59 Weight 85.729 kg Narrative: GENERAL: Well-nourished, well-developed patient in no apparent distress. SKIN: Warm and dry. HEAD: Atraumatic. Normocephalic. EYES: Pupils equal and round. No scleral icterus. No injection or drainage. ENT: No nasal bleeding or discharge. Mucous membranes pink and moist. NECK: Trachea midline. No JVD. CARDIOVASCULAR: Regular rate and rhythm. Unable to detect any murmurs rubs or gallops. RESPIRATORY: No accessory muscle use. Clear to auscultation. Breath sounds equal bilaterally. GASTROINTESTINAL: Abdomen soft, non-tender, nondistended. Hepatic and splenic margins not palpable. MUSCULOSKELETAL: Extremities without clubbing, cyanosis, or edema. No obvious deformities. Left foot partial amputation. NEUROLOGICAL: Awake and alert and oriented 3. No obvious cranial nerve deficits. Motor grossly within normal limits. Five out of 5 muscle strength in the arms and legs. Normal speech. PSYCHIATRIC: Appropriate mood and affect; insight and judgment normal. Results - Labs CBC & Chem 7: 01/19/18 14:01 01/19/18 14:01 Labs: Laboratory Results - last 24 hr 01/19/18 01/19/18 01/19/18 14:01 14:01 14:01 WBC 6.7 RBC 5.19 Hgb 15.4 Hct 46.5 MCV 89.7 MCH 29.6 MCHC 33.1 RDW 15.1 Plt Count 188 MPV 9.3 Neut % (Auto) 64.6 Lymph % (Auto) 21.6 [place] % (Auto) 10.3 H Eos % (Auto) 2.7 Baso % (Auto) 0.8 Neut # (Auto) 4.3 Lymph # (Auto) 1.4 [place] # (Auto) 0.7 Eos # (Auto) 0.2 Baso # (Auto) 0.1 WBC Differential . Differential Comment Auto diff final PT 10.7 INR 1.1 APTT 25.9 Sodium 141 Potassium 4.3 Chloride 106 Carbon Dioxide 24.8 Anion Gap 10 BUN 25 H Creatinine 1.72 H Estimated GFR 40 L Random Glucose 110 H Lactic Acid Calcium 9.0 Troponin I B-Natriuretic Peptide Urine Color Urine Clarity Urine pH Ur Specific [place] Urine Protein Urine Glucose (UA) Urine Ketones Urine Occult Blood Urine Nitrate Urine Bilirubin Urine Urobilinogen Ur Leukocyte Esterase Urine RBC Urine WBC Ur Squamous Epith Cells Calcium Oxalate Crystal Urine Bacteria Hyaline Casts Urine Mucus Micro UA Comment Ur Microscopic Review Urine Culture Comments 01/19/18 01/19/18 01/19/18 14:01 14:01 14:01 WBC RBC Hgb Hct MCV MCH MCHC RDW Plt Count MPV Neut % (Auto) Lymph % (Auto) [place] % (Auto) Eos % (Auto) Baso % (Auto) Neut # (Auto) Lymph # (Auto) [place] # (Auto) Eos # (Auto) Baso # (Auto) WBC Differential Differential Comment PT INR APTT Sodium Potassium Chloride Carbon Dioxide Anion Gap BUN Creatinine Estimated GFR Random Glucose Lactic Acid 1.7 Calcium Troponin I Less than 0.02 L B-Natriuretic Peptide 229 H Urine Color Urine Clarity Urine pH Ur Specific [place] Urine Protein Urine Glucose (UA) Urine Ketones Urine Occult Blood Urine Nitrate Urine Bilirubin Urine Urobilinogen Ur Leukocyte Esterase Urine RBC Urine WBC Ur Squamous Epith Cells Calcium Oxalate Crystal Urine Bacteria Hyaline Casts Urine Mucus Micro UA Comment Ur Microscopic Review Urine Culture Comments 01/19/18 14:47 WBC RBC Hgb Hct MCV MCH MCHC RDW Plt Count MPV Neut % (Auto) Lymph % (Auto) [place] % (Auto) Eos % (Auto) Baso % (Auto) Neut # (Auto) Lymph # (Auto) [place] # (Auto) Eos # (Auto) Baso # (Auto) WBC Differential Differential Comment PT INR APTT Sodium Potassium Chloride Carbon Dioxide Anion Gap BUN Creatinine Estimated GFR Random Glucose Lactic Acid Calcium Troponin I B-Natriuretic Peptide Urine Color [place] Urine Clarity Cloudy H Urine pH 5.0 Ur Specific [place] 1.021 Urine Protein 100 H Urine Glucose (UA) Negative Urine Ketones Trace H Urine Occult Blood Negative Urine Nitrate Negative Urine Bilirubin Negative Urine Urobilinogen 2.0 H Ur Leukocyte Esterase Trace H Urine RBC 9 H Urine WBC 10 H Ur Squamous Epith Cells 1 Calcium Oxalate Crystal Occasional H Urine Bacteria Moderate H Hyaline Casts 47 Urine Mucus Few H Micro UA Comment Culture indicated Ur Microscopic Review Not Reportable Urine Culture Comments Culture indicated - Imaging Impressions Chest X-Ray 01/19/18 13:55 CONCLUSION: No acute intrathoracic disease. Stable examination. Caprini VTE Risk Assessment Caprini VTE Risk Assessment: No/Low Risk (score <= 1) Caprini Risk Assessment Model: Point Value = 1 Point Value = 2 Point Value = 3 Point Value = 5 Age 41-60 Minor surgery BMI > 25 kg/m2 Swollen legs Varicose veins or History of unexplained or recurrent spontaneous Oral contraceptives or hormone replacement Sepsis (< 1 month) Serious lung disease, including pneumonia (< 1 month) Abnormal pulmonary function Acute myocardial infarction Congestive heart failure (< 1 month) History of inflammatory bowel disease Medical patient at bed rest Age 61-74 Arthroscopic surgery Major open surgery (> 45 min) Laparoscopic surgery (> 45 min) Malignancy Confined to bed (> 72 hours) Immobilizing plaster cast Central venous access Age >= 75 History of VTE Family history of VTE Factor V Leiden Prothrombin [id number] Lupus anticoagulant Anticardiolipin antibodies Elevated serum homocysteine Heparin-induced thrombocytopenia Other congenital or acquired thrombophilia Stroke (< 1 month) Elective arthroplasty Hip, pelvis, or leg fracture Acute spinal cord injury (< 1 month) Prophylaxis Regimen: Total Risk Factor Score Risk Level Prophylaxis Regimen 0-1 Low Early ambulation 2 Moderate Order ONE of the following: *Sequential Compression Device (SCD) *Heparin 5000 units SQ BID 3-4 Higher Order ONE of the following medications: *Heparin 5000 units SQ TID *Enoxaparin/Lovenox 40 mg SQ daily (WT < 150 kg, CrCl > 30 mL/min) *Enoxaparin/Lovenox 30 mg SQ daily (WT < 150 kg, CrCl > 10-29 mL/min) *Enoxaparin/Lovenox 30 mg SQ BID (WT < 150 kg, CrCl > 30 mL/min) AND/OR *Sequential Compression Device (SCD) 5 or more Highest Order ONE of the following medications: *Heparin 5000 units SQ TID (Preferred with Epidurals) *Enoxaparin/Lovenox 40 mg SQ daily (WT < 150 kg, CrCl > 30 mL/min) *Enoxaparin/Lovenox 30 mg SQ daily (WT < 150 kg, CrCl > 10-29 mL/min) *Enoxaparin/Lovenox 30 mg SQ BID (WT < 150 kg, CrCl > 30 mL/min) AND *Sequential Compression Device (SCD) Assessment and Plan - Assessment (1) Near syncope Code(s): R55 - Syncope and collapse Status: Acute (2) Weakness Code(s): R53.1 - Weakness Status: Acute (3) Dehydration Code(s): E86.0 - Dehydration Status: Acute (4) Acute kidney failure Code(s): N17.9 - Acute kidney failure, unspecified Status: Acute (5) Urinary tract infection Code(s): N39.0 - Urinary tract infection, site not specified Status: Acute (6) Hypotension Code(s): I95.9 - Hypotension, unspecified Status: Acute (7) CAD (coronary artery disease) Code(s): I25.10 - Atherosclerotic heart disease of [place] coronary artery without angina pectoris Status: Chronic (8) History of stroke Code(s): Z86.73 - Personal history of transient ischemic attack (TIA), and cerebral infarction without residual deficits Status: Chronic (9) Cardiomyopathy Code(s): I42.9 - Cardiomyopathy, unspecified Status: Chronic (10) History of automatic internal cardiac defibrillator (AICD) Status: Chronic - Plan 67-year-old white male with significant past medical history of CAD and stents, hypertension, ischemic cardiomyopathy EF 20% has AICD, COPD, PAD, CVA. Presented to the emergency room with complaint of feeling lightheaded, weak for approximately a week. Was recently treated as outpatient with antibiotics for UTI and possible diverticulitis. Today he went to see his PCP and had a near syncopal episode, was found to be hypotensive with a slow heart rate. Near syncopal episode secondary to dehydration, initial blood pressure 84/54. Had shortness of breath during episode, no chest pain. Continuous cardiac telemetry will be ordered Continue with serial troponin 2 -We will hydrate cautiously normal saline at 50, monitor for fluid overload, patient with history of cardiomyopathy -Orthostatics every shift We will hold antihypertensive agents at this time. Weakness, dehydration. Found with UTI. Recently treated for diverticulitis and UTI. Completed antibiotics Loose stools tapering down, no abdominal pain. No indication for abdomen CT at this time. UA positive for bacteriuria Continue with IV fluids Continue Rocephin 1 g IV daily and follow cultures -Start cardiac diet Acute on chronic kidney injury stage III secondary to dehydration Continue with cautious hydration Follow renal function Avoid nephrotoxic agents Ischemic cardiomyopathy, EF 20%, has AICD/pacemaker Coronary artery disease and prior stents Continue with home medications as indicated. Home reconciliation pending History of PAD, CVA We will continue home medications after medications have been reconciled next No DVT prophylaxis at this time, patient is ambulatory. Patient with history of HIT. Plan of care discussed with patient and RN. Further management of the patient will be dependent on hospital course Possible discharge tomorrow if symptoms resolve and urine culture is back. (4) Acute kidney failure Qualifiers: Acute renal failure type: unspecified Qualified Code(s): N17.9 - Acute kidney failure, unspecified (5) Urinary tract infection Qualifiers: Urinary tract infection type: acute cystitis Hematuria presence: without hematuria Qualified Code(s): N30.00 - Acute cystitis without hematuria (6) Hypotension Qualifiers: Hypotension type: unspecified hypotension type Qualified Code(s): I95.9 - Hypotension, unspecified (7) CAD (coronary artery disease) Qualifiers: Coronary Disease-Associated Artery/Lesion type: unspecified vessel or lesion type [place] vs. transplanted heart: [place] heart Associated angina: without angina Qualified Code(s): I25.10 - Atherosclerotic heart disease of [place] coronary artery without angina pectoris (9) Cardiomyopathy Qualifiers: Cardiomyopathy type: ischemic Qualified Code(s): I25.5 - Ischemic cardiomyopathy
[2018-01-19] MEDS ORDERED: Bisacodyl 10 MG Supp RECTAL PRN (17:55)
[2018-01-19] MEDS ORDERED: Acetaminophen 325 MG Tablet PO PRN (17:56)
[2018-01-19] MEDS ORDERED: Sod Chloride 0.9% Inj 1,000 ML IV.CONT SCH (18:00)
[2018-01-19 20:42] LABS: Creatine Kinase 51 U/L (39-308)
[2018-01-20 01:38] LABS: Creatine Kinase 55 U/L (39-308)
[2018-01-20 10:06] LABS: Baso % (Auto) 0.8 % (0.0-2.0); Eos # (Auto) 0.2 th/mm3 (0.0-0.4); Eos % (Auto) 3.3 % (0.0-4.0); Hematocrit 40.6 % (39.0-51.0); Hemoglobin 13.9 gm/dL (13.0-17.0); Lymph % (Auto) 22.3 % (9.0-44.0); Mean Corpuscular HGB Conc 34.3 % (32.0-36.0); Mean Corpuscular Hemoglobin 30.2 pg (27.0-34.0); Mean Corpuscular Volume 88.3 fL (80.0-100.0); Mean Platelet Volume 8.7 fL (7.0-11.0); Mono # (Auto) 0.4 th/mm3 (0.0-0.9); Mono % (Auto) 9.2 % (0.0-8.0); Neut % (Auto) 64.4 % (16.0-70.0); Platelet Count 155 th/mm3 (150-450); Red Cell Distribution Width 15.3 % (11.6-17.2); White Blood Count 4.6 th/mm3 (4.0-11.0)
[2018-01-20 10:27] LABS: Calcium 8.5 mg/dL (8.5-10.1); Carbon Dioxide 27.7 meq/L (21.0-32.0); Potassium 4.8 meq/L (3.5-5.1)
--- NOTE | 2018-01-20 13:21 | ECG ---
Date Performed: 01/19/2018 Time Performed: 13:48:37 PTAGE: 67 years EKG: Sinus rhythm WITH SHORT CO INTERVAL WITH OCCASIONAL VENTRICULAR PREMATURE COMPLEXES MARKED LEFT AXIS DEVIATION IN TRAVENTRICULAR CONDUCTION DELAY LEFT VENTRICULAR HYPERTROPHY AND ST-T CHANGE ABNORMAL ECG PREVIOUS TRACING : 08/06/2017 16.38 DOCTOR: Bret Baird Interpretating Date/Time 01/20/2018 13:21:33
--- NOTE | 2018-01-20 14:34 | P.PN ---
Subjective Interval history: follow up for weakness, UTI, near syncope, hypotension and bradycardia: Patient examined, endorses he feels much better. He is eating, good appetite. No nausea, no vomiting. No abdominal pain. Has had one loose stool. No fever. Denies any urinary symptoms. Blood pressure now 120s 130s. Heart rate 50s, patient indicates that his baseline. Has been able to ambulate to the bathroom without any difficulty, no dizziness, no syncopal episodes overnight. Telemetry reviewed, sinus bradycardia. Patient anxious to go home. Physical Exam Vital signs: Vital Signs 01/19/18 18:44 01/19/18 19:47 01/19/18 20:00 Temperature 97.4 F L 97.9 F Pulse Rate 57 L 77 55 L Respiratory Rate 14 20 Blood Pressure 139/75 111/70 Pulse Oximetry 96 96 01/20/18 00:00 01/20/18 03:44 01/20/18 04:50 Temperature 97.6 F 97.5 F L Pulse Rate 49 L 70 42 L Respiratory Rate 18 19 Blood Pressure 109/55 L 129/61 Pulse Oximetry 96 100 01/20/18 07:50 01/20/18 08:00 01/20/18 12:00 Temperature 97.3 F L 97.9 F Pulse Rate 52 L 53 L 67 Respiratory Rate 18 16 Blood Pressure 137/77 98/70 L Pulse Oximetry 95 98 Intake & Output 01/19/18 01/20/18 01/20/18 18:59 06:59 18:59 Intake Total 1676 / 1676 Output Total 450 / 450 Balance 1226 / 1226 Weight 85.729 kg 87.8 kg Intake: IV 1676 / 1676 NS Inj 1,000 ML @ 50 mls/hr IV. 576 / 576 CONT .Q20H [facility] Rx#:[id number] Rocephin Inj 1,000 MG In NS Inj 100 / 100 100 ML @ 200 mls/hr IV.SIG ONCE ONE Rx#:[id number] Output: Urine 450 / 450 Other: Weight On Admission 88.7 kg Narrative: GENERAL: Well-nourished, well-developed patient in no apparent distress. SKIN: Warm and dry. HEAD: Atraumatic. Normocephalic. EYES: Pupils equal and round. No scleral icterus. No injection or drainage. ENT: No nasal bleeding or discharge. Mucous membranes pink and moist. NECK: Trachea midline. No JVD. CARDIOVASCULAR: Regular rate and rhythm. Sinus bradycardia. RESPIRATORY: No accessory muscle use. Clear to auscultation. Breath sounds equal bilaterally. GASTROINTESTINAL: Abdomen soft, non-tender, nondistended. Hepatic and splenic margins not palpable. MUSCULOSKELETAL: Extremities without clubbing, cyanosis, or edema. No obvious deformities. NEUROLOGICAL: Awake and alert. No obvious cranial nerve deficits. Motor grossly within normal limits. Five out of 5 muscle strength in the arms and legs. Normal speech. PSYCHIATRIC: Appropriate mood and affect; insight and judgment normal. Results - Labs CBC & Chem 7: 01/20/18 09:54 01/20/18 09:54 Laboratory Results - last 24 hr 01/19/18 01/19/18 01/19/18 14:01 14:01 14:01 WBC 6.7 RBC 5.19 Hgb 15.4 Hct 46.5 MCV 89.7 MCH 29.6 MCHC 33.1 RDW 15.1 Plt Count 188 MPV 9.3 Neut % (Auto) 64.6 Lymph % (Auto) 21.6 [place] % (Auto) 10.3 H Eos % (Auto) 2.7 Baso % (Auto) 0.8 Neut # (Auto) 4.3 Lymph # (Auto) 1.4 [place] # (Auto) 0.7 Eos # (Auto) 0.2 Baso # (Auto) 0.1 WBC Differential . Differential Comment Auto diff final PT 10.7 INR 1.1 APTT 25.9 Sodium 141 Potassium 4.3 Chloride 106 Carbon Dioxide 24.8 Anion Gap 10 BUN 25 H Creatinine 1.72 H Estimated GFR 40 L Random Glucose 110 H Lactic Acid Calcium 9.0 Total Creatine Kinase Troponin I B-Natriuretic Peptide Urine Color Urine Clarity Urine pH Ur Specific [place] Urine Protein Urine Glucose (UA) Urine Ketones Urine Occult Blood Urine Nitrate Urine Bilirubin Urine Urobilinogen Ur Leukocyte Esterase Urine RBC Urine WBC Ur Squamous Epith Cells Calcium Oxalate Crystal Urine Bacteria Hyaline Casts Urine Mucus Micro UA Comment Ur Microscopic Review Urine Culture Comments 01/19/18 01/19/18 01/19/18 14:01 14:01 14:01 WBC RBC Hgb Hct MCV MCH MCHC RDW Plt Count MPV Neut % (Auto) Lymph % (Auto) [place] % (Auto) Eos % (Auto) Baso % (Auto) Neut # (Auto) Lymph # (Auto) [place] # (Auto) Eos # (Auto) Baso # (Auto) WBC Differential Differential Comment PT INR APTT Sodium Potassium Chloride Carbon Dioxide Anion Gap BUN Creatinine Estimated GFR Random Glucose Lactic Acid 1.7 Calcium Total Creatine Kinase Troponin I Less than 0.02 L B-Natriuretic Peptide 229 H Urine Color Urine Clarity Urine pH Ur Specific [place] Urine Protein Urine Glucose (UA) Urine Ketones Urine Occult Blood Urine Nitrate Urine Bilirubin Urine Urobilinogen Ur Leukocyte Esterase Urine RBC Urine WBC Ur Squamous Epith Cells Calcium Oxalate Crystal Urine Bacteria Hyaline Casts Urine Mucus Micro UA Comment Ur Microscopic Review Urine Culture Comments 01/19/18 01/19/18 01/20/18 14:47 19:19 00:20 WBC RBC Hgb Hct MCV MCH MCHC RDW Plt Count MPV Neut % (Auto) Lymph % (Auto) [place] % (Auto) Eos % (Auto) Baso % (Auto) Neut # (Auto) Lymph # (Auto) [place] # (Auto) Eos # (Auto) Baso # (Auto) WBC Differential Differential Comment PT INR APTT Sodium Potassium Chloride Carbon Dioxide Anion Gap BUN Creatinine Estimated GFR Random Glucose Lactic Acid Calcium Total Creatine Kinase 51 55 Troponin I Less than 0.02 L Less than 0.02 L B-Natriuretic Peptide Urine Color [place] Urine Clarity Cloudy H Urine pH 5.0 Ur Specific [place] 1.021 Urine Protein 100 H Urine Glucose (UA) Negative Urine Ketones Trace H Urine Occult Blood Negative Urine Nitrate Negative Urine Bilirubin Negative Urine Urobilinogen 2.0 H Ur Leukocyte Esterase Trace H Urine RBC 9 H Urine WBC 10 H Ur Squamous Epith Cells 1 Calcium Oxalate Crystal Occasional H Urine Bacteria Moderate H Hyaline Casts 47 Urine Mucus Few H Micro UA Comment Culture indicated Ur Microscopic Review Not Reportable Urine Culture Comments Culture indicated 01/20/18 01/20/18 09:54 09:54 WBC 4.6 RBC 4.60 Hgb 13.9 Hct 40.6 MCV 88.3 MCH 30.2 MCHC 34.3 RDW 15.3 Plt Count 155 MPV 8.7 Neut % (Auto) 64.4 Lymph % (Auto) 22.3 [place] % (Auto) 9.2 H Eos % (Auto) 3.3 Baso % (Auto) 0.8 Neut # (Auto) 3.0 Lymph # (Auto) 1.0 [place] # (Auto) 0.4 Eos # (Auto) 0.2 Baso # (Auto) 0.0 WBC Differential . Differential Comment Auto diff final PT INR APTT Sodium 143 Potassium 4.8 Chloride 109 H Carbon Dioxide 27.7 Anion Gap 6 BUN 20 H Creatinine 1.05 Estimated GFR 70 L Random Glucose 89 Lactic Acid Calcium 8.5 Total Creatine Kinase Troponin I B-Natriuretic Peptide Urine Color Urine Clarity Urine pH Ur Specific [place] Urine Protein Urine Glucose (UA) Urine Ketones Urine Occult Blood Urine Nitrate Urine Bilirubin Urine Urobilinogen Ur Leukocyte Esterase Urine RBC Urine WBC Ur Squamous Epith Cells Calcium Oxalate Crystal Urine Bacteria Hyaline Casts Urine Mucus Micro UA Comment Ur Microscopic Review Urine Culture Comments Microbiology 01/19/18 14:47 Clean Catch Urine Urine Culture - Preliminary No growth in 24 hours 01/19/18 14:05 Blood - Peripheral Aerobic Blood Culture - Preliminary No growth in 1 day 01/19/18 14:05 Blood - Peripheral Anaerobic Blood Culture - Preliminary No growth in 1 day 01/19/18 14:01 Blood - Peripheral Aerobic Blood Culture - Preliminary No growth in 1 day 01/19/18 14:01 Blood - Peripheral Anaerobic Blood Culture - Preliminary No growth in 1 day - Imaging Impressions Chest X-Ray 01/19/18 13:55 CONCLUSION: No acute intrathoracic disease. Stable examination. Assessment and Plan - Assessment (1) Near syncope Code(s): R55 - Syncope and collapse Status: Acute (2) Weakness Code(s): R53.1 - Weakness Status: Acute (3) Dehydration Code(s): E86.0 - Dehydration Status: Acute (4) Acute kidney failure Code(s): N17.9 - Acute kidney failure, unspecified Status: Acute (5) Urinary tract infection Code(s): N39.0 - Urinary tract infection, site not specified Status: Acute (6) Hypotension Code(s): I95.9 - Hypotension, unspecified Status: Acute (7) CAD (coronary artery disease) Code(s): I25.10 - Atherosclerotic heart disease of [place] coronary artery without angina pectoris Status: Chronic (8) History of stroke Code(s): Z86.73 - Personal history of transient ischemic attack (TIA), and cerebral infarction without residual deficits Status: Chronic (9) Cardiomyopathy Code(s): I42.9 - Cardiomyopathy, unspecified Status: Chronic (10) History of automatic internal cardiac defibrillator (AICD) Status: Chronic - Plan 67-year-old white male with significant past medical history of CAD and stents, hypertension, ischemic cardiomyopathy EF 20% has AICD, COPD, PAD, CVA. Presented to the emergency room with complaint of feeling lightheaded, weak for approximately a week. Was recently treated as outpatient with antibiotics for UTI and possible diverticulitis. Today he went to see his PCP and had a near syncopal episode, was found to be hypotensive with a slow heart rate. Near syncopal episode secondary to dehydration, initial blood pressure 84/54. Had shortness of breath during episode, no chest pain. No chest pain, no shortness of breath. Blood pressure trending upwards, 120s. Continuous cardiac telemetry Serial troponin negative -cautious hydration -Orthostatics every shift-negative. We will hold antihypertensive agents at this time. Weakness, dehydration. Found with UTI. Recently treated for diverticulitis and UTI. Completed antibiotics Loose stools tapering down, no abdominal pain. No indication for abdomen CT at this time. Tolerating diet well, only one loose stool today. No abdominal pain UA positive for bacteriuria, no growth up-to-date Continue Rocephin 1 g IV daily and follow cultures Acute on chronic kidney injury stage III secondary to dehydration Renal function improved. Avoid nephrotoxic agents Ischemic cardiomyopathy, EF 20%, has AICD/pacemaker Coronary artery disease and prior stents Continue with home medications as indicated. History of PAD, CVA We will continue home medications after medications have been reconciled next No DVT prophylaxis at this time, patient is ambulatory. Patient with history of HIT. We will wait for cultures to come back, possible discharge later today. (4) Acute kidney failure Qualifiers: Acute renal failure type: unspecified Qualified Code(s): N17.9 - Acute kidney failure, unspecified (5) Urinary tract infection Qualifiers: Urinary tract infection type: acute cystitis Hematuria presence: without hematuria Qualified Code(s): N30.00 - Acute cystitis without hematuria (6) Hypotension Qualifiers: Hypotension type: unspecified hypotension type Qualified Code(s): I95.9 - Hypotension, unspecified (7) CAD (coronary artery disease) Qualifiers: Coronary Disease-Associated Artery/Lesion type: unspecified vessel or lesion type [place] vs. transplanted heart: [place] heart Associated angina: without angina Qualified Code(s): I25.10 - Atherosclerotic heart disease of [place] coronary artery without angina pectoris (9) Cardiomyopathy Qualifiers: Cardiomyopathy type: ischemic Qualified Code(s): I25.5 - Ischemic cardiomyopathy
[2018-01-20] MEDS ORDERED: Sod Chloride 0.9% Inj 1,000 ML IV.CONT SCH (19:00)
--- NOTE | 2018-01-21 08:39 | P.PN ---
Subjective Interval history: follow up for weakness, UTI, near syncope, hypotension and bradycardia: Patient examined, has been walking around unit. No dizziness, BP better, 115/60. No Cp, no sob, no diarrhea, no n/v, tolerating diet well. No abd. pain. No fever. Physical Exam Vital signs: Vital Signs 01/20/18 12:00 01/20/18 16:23 01/20/18 20:00 Temperature 97.9 F 98.9 F 97.6 F Pulse Rate 67 83 89 Respiratory Rate 16 20 20 Blood Pressure 98/70 L 123/75 105/57 L Pulse Oximetry 98 99 98 01/21/18 00:00 01/21/18 04:00 Temperature 97.6 F 97.9 F Pulse Rate 52 L Respiratory Rate 21 22 Blood Pressure 122/70 115/60 Pulse Oximetry 98 99 Intake & Output 01/20/18 01/21/18 01/21/18 18:59 06:59 18:59 Intake Total 524 / 524 Output Total 450 / 450 800 / 800 Balance 74 / 74 -800 / -800 Weight 87.1 kg Intake: IV 524 / 524 NS Inj 1,000 ML @ 50 mls/hr IV. 424 / 424 CONT .Q20H [facility] Rx#:[id number] Rocephin Inj 1,000 MG In NS Inj 100 / 100 100 ML @ 200 mls/hr IV.SIG Q24H [facility] Rx#:[id number] Output: Urine 450 / 450 800 / 800 Other: # Voids 2 Narrative: GENERAL: Well-nourished, well-developed patient in no apparent distress. SKIN: Warm and dry. HEAD: Atraumatic. Normocephalic. EYES: Pupils equal and round. No scleral icterus. No injection or drainage. ENT: No nasal bleeding or discharge. Mucous membranes pink and moist. NECK: Trachea midline. No JVD. CARDIOVASCULAR: Regular rate and rhythm. Sinus bradycardia. RESPIRATORY: No accessory muscle use. Clear to auscultation. Breath sounds equal bilaterally. GASTROINTESTINAL: Abdomen soft, non-tender, nondistended. Hepatic and splenic margins not palpable. MUSCULOSKELETAL: Extremities without clubbing, cyanosis, or edema. No obvious deformities. NEUROLOGICAL: Awake and alert. No obvious cranial nerve deficits. Motor grossly within normal limits. Five out of 5 muscle strength in the arms and legs. Normal speech. PSYCHIATRIC: Appropriate mood and affect; insight and judgment normal. Results - Labs CBC & Chem 7: 01/20/18 09:54 01/20/18 09:54 Laboratory Results - last 24 hr 01/20/18 01/20/18 09:54 09:54 WBC 4.6 RBC 4.60 Hgb 13.9 Hct 40.6 MCV 88.3 MCH 30.2 MCHC 34.3 RDW 15.3 Plt Count 155 MPV 8.7 Neut % (Auto) 64.4 Lymph % (Auto) 22.3 [place] % (Auto) 9.2 H Eos % (Auto) 3.3 Baso % (Auto) 0.8 Neut # (Auto) 3.0 Lymph # (Auto) 1.0 [place] # (Auto) 0.4 Eos # (Auto) 0.2 Baso # (Auto) 0.0 WBC Differential . Differential Comment Auto diff final Sodium 143 Potassium 4.8 Chloride 109 H Carbon Dioxide 27.7 Anion Gap 6 BUN 20 H Creatinine 1.05 Estimated GFR 70 L Random Glucose 89 Calcium 8.5 Microbiology 01/19/18 14:47 Clean Catch Urine Urine Culture - Preliminary No growth in 24 hours 01/19/18 14:05 Blood - Peripheral Aerobic Blood Culture - Preliminary No growth in 1 day 01/19/18 14:05 Blood - Peripheral Anaerobic Blood Culture - Preliminary No growth in 1 day 01/19/18 14:01 Blood - Peripheral Aerobic Blood Culture - Preliminary No growth in 1 day 01/19/18 14:01 Blood - Peripheral Anaerobic Blood Culture - Preliminary No growth in 1 day Assessment and Plan - Assessment (1) Near syncope Code(s): R55 - Syncope and collapse Status: Acute (2) Weakness Code(s): R53.1 - Weakness Status: Acute (3) Dehydration Code(s): E86.0 - Dehydration Status: Acute (4) Acute kidney failure Code(s): N17.9 - Acute kidney failure, unspecified Status: Acute (5) Urinary tract infection Code(s): N39.0 - Urinary tract infection, site not specified Status: Acute (6) Hypotension Code(s): I95.9 - Hypotension, unspecified Status: Acute (7) CAD (coronary artery disease) Code(s): I25.10 - Atherosclerotic heart disease of [place] coronary artery without angina pectoris Status: Chronic (8) History of stroke Code(s): Z86.73 - Personal history of transient ischemic attack (TIA), and cerebral infarction without residual deficits Status: Chronic (9) Cardiomyopathy Code(s): I42.9 - Cardiomyopathy, unspecified Status: Chronic (10) History of automatic internal cardiac defibrillator (AICD) Status: Chronic - Plan 67-year-old white male with significant past medical history of CAD and stents, hypertension, ischemic cardiomyopathy EF 20% has AICD, COPD, PAD, CVA. Presented to the emergency room with complaint of feeling lightheaded, weak for approximately a week. Was recently treated as outpatient with antibiotics for UTI and possible diverticulitis. Today he went to see his PCP and had a near syncopal episode, was found to be hypotensive with a slow heart rate. Near syncopal episode secondary to dehydration, initial blood pressure 84/54. Had shortness of breath during episode, no chest pain. No chest pain, no shortness of breath. Blood pressure trending upwards, 120s. Continuous cardiac telemetry Serial troponin negative -cautious hydration -Orthostatics every shift-negative. resume BP meds at home, instructed to check BP before taking and if >110 ok to take. Instructed to keep hydrated Weakness, dehydration. Found with UTI. Recently treated for diverticulitis and UTI. Completed antibiotics Loose stools tapering down, no abdominal pain. No indication for abdomen CT at this time. Tolerating diet well, only one loose stool today. No abdominal pain UA positive for bacteriuria, no growth up-to-date On Rocephin -cultures neg. No need for abx on dc. Acute on chronic kidney injury stage III secondary to dehydration Renal function improved. Avoid nephrotoxic agents Ischemic cardiomyopathy, EF 20%, has AICD/pacemaker Coronary artery disease and prior stents Continue with home medications as indicated. History of PAD, CVA continue home meds No DVT prophylaxis at this time, patient is ambulatory. Patient with history of HIT. pt. stable, no dizziness, no fever Discharge home today f/u PCP next week Diet -heart healthy, keep hydrated Activity-as tolerated. (4) Acute kidney failure Qualifiers: Acute renal failure type: unspecified Qualified Code(s): N17.9 - Acute kidney failure, unspecified (5) Urinary tract infection Qualifiers: Urinary tract infection type: acute cystitis Hematuria presence: without hematuria Qualified Code(s): N30.00 - Acute cystitis without hematuria (6) Hypotension Qualifiers: Hypotension type: unspecified hypotension type Qualified Code(s): I95.9 - Hypotension, unspecified (7) CAD (coronary artery disease) Qualifiers: Coronary Disease-Associated Artery/Lesion type: unspecified vessel or lesion type [place] vs. transplanted heart: [place] heart Associated angina: without angina Qualified Code(s): I25.10 - Atherosclerotic heart disease of [place] coronary artery without angina pectoris (9) Cardiomyopathy Qualifiers: Cardiomyopathy type: ischemic Qualified Code(s): I25.5 - Ischemic cardiomyopathy
[2018-01-21] MEDS ORDERED: Sertraline 100 MG Tablet PO SCH (09:00)
== END 2018-01-21 10:47 | disposition home or self-care (01) ==
LOC: NEPC 13:29 → NEDA 13:29 → NEPGCP 18:34
PROVIDERS: ADMIT Hospitalist; ATTEND Hospitalist
DX: R55 Syncope and collapse; Z95.1 Presence of aortocoronary bypass graft; Z86.73 Personal history of transient ischemic attack (TIA), and cerebral infarction without residual deficits; I25.10 Atherosclerotic heart disease of native coronary artery without angina pectoris; N18.9 Chronic kidney disease, unspecified; Z95.5 Presence of coronary angioplasty implant and graft; Z95.810 Presence of automatic (implantable) cardiac defibrillator; R53.1 Weakness; Z82.49 Family history of ischemic heart disease and other diseases of the circulatory system; Z87.891 Personal history of nicotine dependence; I73.9 Peripheral vascular disease, unspecified; R07.89 Other chest pain; I25.5 Ischemic cardiomyopathy; I12.9 Hypertensive chronic kidney disease with stage 1 through stage 4 chronic kidney disease, or unspecified chronic kidney disease; E86.0 Dehydration; N17.9 Acute kidney failure, unspecified; J44.9 Chronic obstructive pulmonary disease, unspecified; N39.0 Urinary tract infection, site not specified